=== PATIENT | male | born 1965 | race Caucasian/White ===

== ENCOUNTER 2020-10-13 21:42 | Emergency (ER) | payer SELFPAY ==
[2020-10-13 21:43] VITALS: BP 166/85; PULSE 74; RESP 16; TEMP 36.5; O2SAT 94; BMI 21.2
--- NOTE | 2020-10-13 21:48 | CTR_ITS ---
PROCEDURE INFORMATION: Exam: CT Abdomen And Pelvis Without Contrast Exam date and time: 10/13/2020 9:48 PM Age: 55 years old Clinical indication: Abdominal pain; Flank; Left; Prior surgery; Surgery type: Appy, colostomy; Additional info: Flank pain TECHNIQUE: Imaging protocol: Computed tomography of the abdomen and pelvis without contrast. Radiation optimization: All CT scans at this facility use at least one of these dose optimization techniques: automated exposure control; mA and/or kV adjustment per patient size (includes targeted exams where dose is matched to clinical indication); or iterative reconstruction. COMPARISON: No relevant prior studies available. RADIATION DOSE METRICS: Total DLP (mGy-cm): 753.36 FINDINGS: Liver: Normal. No mass. Gallbladder and bile ducts: Normal. No calcified stones. No ductal dilation. Pancreas: Normal. No ductal dilation. Spleen: Normal. No splenomegaly. Adrenal glands: Normal. No mass. Kidneys and ureters: There is a 3 mm nonobstructing calculus in the right kidney. Mild to moderate left obstructive uropathy is due to a 4 x 4 mm calculus in the very distal left ureter partially projecting into the urinary bladder. Additional 2 mm nonobstructing left intrarenal calculus. Stomach and bowel: Patent rectosigmoid anastomosis. Appendix: No evidence of appendicitis. Intraperitoneal space: Unremarkable. No free air. No significant fluid collection. Vasculature: Unremarkable. No abdominal aortic aneurysm. Lymph nodes: Unremarkable. No enlarged lymph nodes. Urinary bladder: Unremarkable as visualized. Reproductive: Unremarkable as visualized. Bones/joints: Unremarkable. No acute fracture. Soft tissues: 2 cm umbilical hernia consist of fatty tissue only. Small right inguinal hernia consist of fatty tissue only. CT/CT kidney stone 88877 IMPRESSION: 1. Left obstructive uropathy due to a 4 mm distal ureteral calculus. 2. Additional bilateral nonobstructing renal stones. Radiation Dose CTDIVOL = (mGy): DLP = 753.36 (mGy-cm)
--- NOTE | 2020-10-13 21:49 | ED_ITS ---
HPI - Abdominal Pain General: Chief Complaint: Abdominal Pain Stated Complaint: POSSIBLE KIDNEY STONES Time Seen by Provider: 10/13/20 21:48 History of Present Illness: HPI narrative: 55-year-old male patient comes in today with complaints of flank pain. Patient was seen at [facility] emergency department and was diagnosed with kidney stones. Patient was started on tamsulosin and tramadol for his pain. Today patient had worsening pain was able to control it with tramadol. Patient came in by EMS. Patient appears well. Patient appears in mild pain at this time. Patient does report that his pain is much improved. Review of Systems General: Reports: 10 or more systems reviewed and unremarkable except in HPI and below : Reports: flank pain Physical Exam Const: COMMON NORMALS: no acute distress and patient oriented x3 GENERAL APPEARANCE: cooperative HENMT: COMMON NORMALS: normocephalic and Normal external nose present HEAD & SCALP: normal to inspection and normocephalic NOSE: Normal external nose present MOUTH: Normal oral and palatal mucosa present Eye: GENERAL EYE: appearance normal, both eyes and all related structures Neck/C-Spine: COMMON NORMALS: full ROM Chest: COMMONS NORMALS: normal inspection of the chest Resp: COMMON NORMALS: normal respiratory effort EFFORT & INSPECTION: Yes able to speak in complete sentences Cardio: COMMON NORMALS: regular rate and regular rhythm RATE: regular rate RHYTHM: regular rhythm GI: COMMON NORMALS: non-tender Back/Pelvis: COMMON NORMALS: thoracic and lumbar spine normal to inspection Extremity: COMMON NORMALS: normal to inspection Neuro: COMMON NORMALS: patient oriented x3 and moves all extremities Psych: COMMON NORMALS: mental status grossly normal and cooperative Skin: COMMON NORMALS: no rashes or lesions noted GENERAL SKIN EXAM: no rashes or lesions noted Course Vital Signs: Vital signs: Vital Signs Temperature 97.7 F 10/13/20 21:43 Pulse Rate 74 10/13/20 21:43 Respiratory Rate 16 10/13/20 21:43 Blood Pressure 166/85 10/13/20 21:43 Pulse Oximetry 94 10/13/20 21:43 MDM - Abdominal Pain MDM Narrative: Medical decision making narrative: 55-year-old male patient comes in with some left flank pain. On exam patient has some CVA tenderness. Abdomen soft nontender. Bowel sounds are present. Patient had been seen at another emergency room and diagnosed with a left ureteral stone. Patient was unable to tolerate the pain today and had EMS bring him into the emergency department. Patient received a milligram of Dilaudid in route to the ER. Patient's pain is under good control at this time. Differential diagnosis includes not limited to urinary calculi, pyelonephritis, acute kidney injury. Laboratory values noted a CBC of 11,000 white count, potassium was mildly low at 3.1, glucose was at 188, creatinine was 0.8, CT scan noted a distal ureteral le ft kidney stone. We will continue patient on hydrocodone to help better control his pain. I will arrange for patient to have follow-up with urologist. No signs of significant illness was noted and patient was doing well after treatment. Lab Data: Labs: Lab Results 10/13/20 10/13/20 10/13/20 Range/Units 21:55 21:55 22:15 WBC 11.0 H (4.0-10.0) 10^3/ uL RBC 4.43 (4.1-5.3) 10^6/u L Hgb 13.6 (11.7-16.6) g/dL Hct 39.9 L (42.0-52.0) % MCV 90.1 (80-94) fL MCH 30.7 (28.0-34.0) pg MCHC 34.1 (30.0-36.0) g/dL RDW 12.2 (12.1-15.1) % Plt Count 248 (130-400) 10^3/c mm MPV 9.2 (7.4-10.4) fL Neut % (Auto) 72.6 % Lymph % (Auto) 17.9 % Sutter % (Auto) 7.2 % Eos % (Auto) 1.5 % Baso % (Auto) 0.5 % Neut # (Auto) 8.01 H (1.8-7.7) 10^3/u L Lymph # (Auto) 2.0 (0.8-4.8) 10^3/u L Sutter # (Auto) 0.8 (0.2-0.9) 10^3/u L Eos # (Auto) 0.2 (0.0-0.8) 10^3/u L Baso # (Auto) 0.1 (0.0-0.1) 10^3/u L Nucleated RBC % (a uto) 0 % Nucleated RBCs # 0.0 /100WBC Sodium 138 (136-145) mmol/L Potassium 3.1 L (3.5-5.1) mmol/L Chloride 105 (98-107) mmol/L Carbon Dioxide 22 (22-29) mmol/L Anion Gap 14.1 (5-19) BUN 12 (6-20) mg/dL Creatinine 0.8 (0.7-1.2) mg/dL GFR Calculation 100.7 (90-130) mL/min Glucose 188 H (65-115) mg/dL Calculated Osmolal ity 291 (285-295) mOsm/k g Calcium 8.1 L (8.5-10.5) mg/dL Total Bilirubin 0.5 (0.15-1.2) mg/dL AST 16 (0-40) U/L ALT 13 (0-41) U/L Alkaline Phosphata se 64 (40-130) IU/L Total Protein 6.4 L (6.6-8.7) g/dL Albumin 3.7 (3.5-5.2) g/dL Globulin 2.7 (1.3-4.6) g/dL Urine Color Yellow (Yellow) Urine Appearance Clear (CLEAR) Urine pH 6.5 (5-7) Ur Specific Gravit y 1.010 (1.005-1.030) Urine Protein Neg (Negative) Urine Glucose (UA) 4+ H (Normal) Urine Ketones Negative (Negative) Urine Blood 2+ H (Negative) Urine Nitrate Negative (Negative) Urine Bilirubin Neg (Negative) Urine Urobilinogen 4 H (Negative) mg/dL Ur Leukocyte Odalis ase Negative (Negative) Urine RBC 0-4 H (0-2) /hpf Urine WBC 0-4 H (0-5) /hpf Ur Squamous Epith Cells 0-4 H (0-5) /hpf Amorphous Sediment Not Reportable Urine Bacteria Trace (NONE) /hpf Urine Mucus Trace /hpf Discharge Plan Discharge Patient Disposition: Home Clinical Impression: Left ureteral calculus Condition: Stable Prescriptions: New hydrocodone-acetaminophen 5-325 mg tablet 1 tab PO Q6H PRN (Reason: pain) Qty: 14 RF: 0 Discharge Orders: Discharge ED (Routine); Ordered 10/13/20 Ordered By: Arnold Linda Referrals: [facility] [Other] Discharge Diet: Usual diet Discharge Activity: Increase activity as tolerated Patient Instructions: Renal Colic (ED), Opioid Safety Activity Restrictions/Additional Instructions: Use medication as directed. Continue with the tamsulosin. Use the hydrocodone for uncontrolled pain. Use acetaminophen or ibuprofen for further pain control. Follow-up with urologist. Case management will contact you regarding a urology follow-up appointment. Return to the emergency room for new concerns. Coding Level of Care Code ED Handicrafts Teacher for Julianna Fwd Exam Comprehensive
[2020-10-13 21:59] LABS: Basophils # 0.1 10^3/uL (0.0-0.1); Basophils % 0.5 %; Eosinophils # 0.2 10^3/uL (0.0-0.8); Eosinophils % 1.5 %; Hematocrit 39.9 % (42.0-52.0); Hemoglobin 13.6 g/dL (11.7-16.6); Lymphocytes % 17.9 %; Mean Corpuscular HGB Conc 34.1 g/dL (30.0-36.0); Mean Corpuscular Hemoglobin 30.7 pg (28.0-34.0); Mean Corpuscular Volume 90.1 fL (80-94); Mean Platelet Volume 9.2 fL (7.4-10.4); Monocytes # 0.8 10^3/uL (0.2-0.9); Monocytes % 7.2 %; Neutrophils # 8.01 10^3/uL (1.8-7.7); Neutrophils % 72.6 %; Nucleated Red Blood Cells % 0 %; Platelet Count 248 10^3/cmm (130-400); Red Blood Count 4.43 10^6/uL (4.1-5.3); Red Cell Distribution Width 12.2 % (12.1-15.1)
[2020-10-13] MEDS: sodium chloride 0.9% 500 ML 999 ML IV (22:15)
[2020-10-13 22:20] LABS: Alanine Aminotransferase 13 U/L (0-41); Albumin Level 3.7 g/dL (3.5-5.2); Alkaline Phosphatase 64 IU/L (40-130); Anion Gap 14.1 (5-19); Aspartate Amino Transferase 16 U/L (0-40); Blood Urea Nitrogen 12 mg/dL (6-20); Calcium 8.1 mg/dL (8.5-10.5); Carbon Dioxide 22 mmol/L (22-29); Chloride 105 mmol/L (98-107); Creatinine Clr Calc Pharmacy 99.2004; Globulin 2.7 g/dL (1.3-4.6); Glomerular Filtration Rate 100.7 mL/min (90-130); Glucose 188 mg/dL (65-115); Osmolality Calculated 291 mOsm/kg (285-295); Potassium 3.1 mmol/L (3.5-5.1); Sodium 138 mmol/L (136-145); Total Bilirubin 0.5 mg/dL (0.15-1.2); Total Protein 6.4 g/dL (6.6-8.7)
[2020-10-13 22:29] LABS: Add Urine Culture? No; Add Urine Microscopic? YES; Bacteria Urine TRACE /hpf; Bilirubin Urine Neg (Negative); Blood Urine 2+ (Negative); Glucose Urine UA 4+ (Normal); Ketones Urine Negative (Negative); Leukocyte Esterase Urine Negative (Negative); Mucus Urine TRACE /hpf; Nitrate Urine Negative (Negative); Protein Urine Neg (Negative); RBC Urine 0-4 /hpf (0-2); Squamous Epithelial Cell Urine 0-4 /hpf (0-5); Urine Appearance Clear (CLEAR); Urine Color Yellow (Yellow); Urobilinogen Urine 4 mg/dL (Negative); WBC Urine 0-4 /hpf (0-5); pH Urine 6.5 (5-7)
[2020-10-13] MEDS: HYDROcodone-acetaminophen 7.5-325 mg Tablet 2 TAB PO (22:57)
[2020-10-13 23:17] VITALS: BP 159/85; PULSE 73; RESP 16; TEMP 36.4; O2SAT 98
--- NOTE | 2020-10-14 10:43 | DCPLANNER ---
behavioral health case manager had message to schedule a follow up appointment for patient with Dr. Daigle. behavioral health case manager called the office of Dr. Daigle, spoke with Mateo, gave clinic patients information. behavioral health case manager was told that patients information would be printed and reviewed. Clinic will call patient with appointment information.
--- NOTE | 2020-10-15 13:53 | DCPLANNER ---
Patient had a follow up appointment scheduled for 10.15.[address] Daigle -patient did attend appointment.
== END 2020-10-13 22:45 | disposition home or self-care (01) ==
PROVIDERS: Emergency Provider Nurse Practitioner Family
DX: N20.2 Calculus of kidney with calculus of ureter (principal)
CPT/HCPCS: 74176; 80053; 81001; 85025; 99283; J7040

== ENCOUNTER 2020-10-15 12:59 | Outpatient (CLI) | payer SELFPAY ==
--- NOTE | 2020-10-15 13:06 | XR_ITS ---
WS: [id number] XR KUB [id number] REASON FOR EXAM: URETERAL CALCULUS FINDINGS: No free air. Unremarkable bowel gas pattern. No intrarenal calculi identified. Recent CT scan demonstrated a 3 mm calculus in the right kidney. No calculus is identified along the course of the right ureter. Within the left lower pelvis there is a 4 mm calcification which is felt to represent the calculus at the left ureterovesical junction demonstrated on recent CT. XR/XR KUB [id number] IMPRESSION: Right renal calculus not identified. Presumed left ureterovesical junction calculus.
== END 2020-10-15 13:00 | disposition home or self-care (01) ==
LOC: RAD 13:04
PROVIDERS: Visit Provider Urology
DX: N20.1 Calculus of ureter (principal); Z20.822 Contact with and (suspected) exposure to COVID-19
CPT/HCPCS: 74018; 81003; 87635

== ENCOUNTER 2020-10-20 10:32 | Day surgery (SDC) | payer SELFPAY ==
[2020-10-17 10:41] VITALS: BMI 22.1
[2020-10-20] VITALS (7 sets, daily range): BP systolic 110–172; BP diastolic 67–93; PULSE 68–78; RESP 10–18; TEMP 36.4–36.9; O2SAT 96–100
--- NOTE | 2020-10-20 | SCC_ITS ---
Procedure Done: Cystoscopy, LEFT: Retrograde, ureteroscopy, laser, stent 20.5 seconds of fluoroscopic guidance, for a cumulative dose of 4.08 mGy, was provided to Dr. Daigle by the radiology department. C-arm images of the abdomen were saved for the patient's permanent record. [facility]
--- NOTE | 2020-10-20 10:39 | SC_ITS ---
WS: [id number] C-arm fluoroscopy for left ureteral stent placement, 10/20/2020 Clinical Data: Left distal ureteral calculus Comparison: KUB, 10/20/2020. Findings: A left retrograde urogram shows a filling defect in the distal left ureter which is a left UVJ calcul us. A left ureteral stent is curled in the region of the left renal pelvis. SC/C-arm FL for Urology Impression: Left ureteral stent placement.
--- NOTE | 2020-10-20 10:39 | XR_ITS ---
WS: [id number] KUB, AP view, 10/20/2020 Clinical Data: Preop left ureteroscopy Comparison: KUB, 10/15/2020. Findings: No abnormal intraabdominal masses or calcifications are seen. There is no dilatated small bowel or ev idence of obstruction. There is an irregular calcification on the left side of the true pelvis which may be a left UVJ calcu mercedes. There is a large amount of fecal material and gas throughout the abdomen. XR/XR KUB [id number] Impression: Probable left UVJ calculus.
--- NOTE | 2020-10-20 12:02 | W.PM.OPSUD ---
Surgery/Procedure H&P Update DATE OF PROCEDURE: October 20, 2020 DATE H&P PERFORMED: 10/15/20 H&P UPDATE INFORMATION: I have reviewed H&P completed within last 30 days, I have examined patient prior to procedure, No changes to prior documentation and H&P is in [facility] EMR on date indicated CHANGES TO PREVIOUS DOCUMENTATION: KUB shows no change in the position of the stone identified on CT scan and prior KUB as being within the left distal ureter PREOP DIAGNOSIS: Left distal ureteral stone, refractory symptoms PLANNED PROCEDURE: Operation Date: 10/20/20 12:00 Proposed Procedures p Laser Lithotripsy 66924 [id number] 21361 n20.1(Not Applicable) - Ady Daigle MD s Cystoscopy(Not Applicable) - Ady Daigle MD s Retrograde Pyelogram(Left) - MD sharlene Dunaway Ureteroscopy(Not Applicable) - MD sharlene Dunaway Ureteral Stent Placement(Not Applicable) - Ady Daigle MD
[2020-10-20] MEDS: sodium chloride 0.9% 1,000 ML 30 ML IV (12:04)
--- NOTE | 2020-10-20 12:04 | P.OP_ITS ---
Operative Report Date of procedure: October 20, 2020 Pre-op Diagnosis: Left distal ureteral stone, refractory symptoms Post-op diagnosis: same Procedure Done: Cystoscopy, LEFT: Retrograde, ureteroscopy, laser, stent Implants: Left ureteral stent 6 Faroese by 28 cm double-pigtail no string Specimens removed/disposition: Stone Pathology: Stone Surgeon: Pilo Anesthesia: General Estimated blood loss: Minimal Urine output: Not measured Complications: None Findings: Stone in the expected position. Condition: stable Disposition: PACU Brief History: Nathaniel is a 55-year-old white male with a history of intermittent severe left flank/renal colicky type pain related to a left distal ureteral stone diagnosed on CT scan. initial conservative trial failed to lead to stone passage and has had severe pain off and on. Admitted now for endoscopic treatment of the stone Procedure: After routine preoperative evaluation examination was taken to the operating suite on 11-08 where general anesthesia was administered without difficulty. Prepped and draped in usual sterile fashion in dorsolithotomy position paying careful attention to avoiding pressure points after appropriate timeout was performed, SCDs confirmed to be functioning, preoperative antibiotics administered, beta-georgina protocol confirmed. Prepped and draped in usual sterile fashion in dorsolithotomy position paying careful attention to avoiding pressure points. 21 Faroese cystoscope with 30 degree lens was introduced to the urethral meatus and advanced to the bladder to videoscopy. The bladder was systematically examined. No stones were seen. 8 Faroese cone-tip catheter intubated to the left ureteral orifice for a left retrograde ureteropyelogram which demonstrated distal ureteral filling defect consistent with a stone seen on prior imaging. Ureter proximal to that point was dilated. Flexible tip guidewire was then advanced up the left ureter bypassing the stone curling in the area of the left renal pelvis. The distal ureter was in the later with a 15 Faroese 4 cm balloon with no waste. Wire was secured to the drapes as a safety wire and an offset semirigid ureteroscope was advanced next to the wire up the left ureter where the stone was encountered in the expected position. Attempts at securing it and try grasping forceps were unsuccessful. It was then fragmented with a 365 ?m psyllium superpulse laser fiber into small enough pieces that were easily withdrawn with a parachute basket. The distal ureter was then reinspected and was found to be quite edematous where the stone had been lodged and for that reason it was decided to leave a stent indwelling at the completion of the procedure. The cystoscope was backloaded over the guidewire and a 6 Faroese by 28 cm double- pigtail stent was advanced over the guidewire through the cystoscope into appropriate position as confirmed via fluoroscopy and cystoscopy. No additional fragments were seen in the bladder. The bladder was drained and the procedure completed. He tolerated procedure well without complications and was awakened in the operating room and returned to the recovery in stable condition. PLANS: 1. Anticipate discharge from outpatient surgery 2. Follow-up next week for cystoscopy and stent removal. No x-ray required
--- NOTE | 2020-10-20 12:16 | ANES.PREANE2 ---
Pre-Anesthetic Assessment Pre-Anesthetic Assessment: Height/Weight: Height 1.73 m Weight 66.224 kg Temp Pulse Resp BP Pulse Ox 98.2 F 78 16 172/79 97 10/20/20 11:50 10/20/20 11:50 10/20/20 11:50 10/20/20 11:50 10/20/20 11:50 Preop Diagnosis: Left distal ureteral stone, refractory symptoms Proposed Procedure: Operation Date: 10/20/20 12:00 Proposed Procedures p Laser Lithotripsy [id number] 81253 n20.1(Not Applicable) - Ady Daigle MD s Cystoscopy(Not Applicable) - Ady Daigle MD s Retrograde Pyelogram(Left) - MD sharlene Dunaway Ureteroscopy(Not Applicable) - MD sharlene Dunaway Ureteral Stent Placement(Not Applicable) - Ady Daigle MD Was Beta Duarte taken within 24 hours: N/A Was Clonidine taken within 24 hours: N/A Last intake: Intake Last Liquid Date 10/20/20 Last Liquid Time 00:00 Last Solid Date 10/20/20 Last Solid Time 00:00 Social: Social History: Alcohol (occasionally) and Tobacco Packs per day: marijuana daily Exam: Pre-Anes Outpt Exam: alert, oriented x 3, clear to auscultation bilaterally and regular rate & rhythm Airway: Submandibular: WNL Cervical ROM: WNL MP: 2 Dentition: Chipped Pulmonary: Pulmonary: Asthma and SOB CV/HEM: Comments: stent x4; history of chest pain, one FL : : None reported Hepatic: Hepatic: None reported GI: GI: None reported Metabolic: Metabolic: Hyperlipidemia Musc/skel: Comments: sciatica Neuropsych: Neuropsych: None reported Anesthetic Plan: ASA status: 2 Anesthesia: Anesthesia Evaluation and General Risk of > 500 ml blood loss (7ml/kg in children): No Meds/Allergies Current Medications: Current Medications Generic Name Dose Route Start Last Admin Trade Name Freq PRN Reason Stop Dose Admin Sodium Chloride 1,000 mls @ 30 ml s/hr 10/20/20 10:45 10/20/20 12:04 Sodium Chloride 0.9% IV 10/21/20 10:44 30 mls/hr .Q24H FRANCISCO Administration PFSH Anesthesia PFSH: Family History Mother , AT 56 Internal bleeding Father Lung disease Cancer LUNG Social History Smoking and tobacco status: current every day smoker Alcohol intake: current Marital status: Single Current occupational status: employed History of recent travel: No Data Anesthesia Cardiac Studies: No Data to Display
[2020-10-20] MEDS: levofloxacin-dextrose 5 % 500 MG/100 ML PREMIX 100 MG IV (12:25)
--- NOTE | 2020-10-20 13:17 | SUR.PHASEI ---
1314 PATIENT TO OPS FROM OR AT THIS TIME. ORAL AIRWAY IN PLACE. SPO2 100% ON SIMPLE MASK AT 6L.
--- NOTE | 2020-10-20 13:20 | SUR.PHASEI ---
1320 ORAL AIRWAY REMOVED. SPO2 100% ON RA.
--- NOTE | 2020-10-20 13:34 | SUR.PHASEI ---
7826 PATIENT TO OPS. DENIES PAIN.
[2020-10-20] MEDS: HYDROcodone-acetaminophen 5-325 mg Tablet 1 TAB PO (14:00)
--- NOTE | 2020-10-20 19:33 | ANE.PACU2 ---
Inpatient post-anesthesia follow up: Airway intact: Yes Vital signs: Temperature 97.5 F Pulse Rate 68 Respiratory Rate 18 Blood Pressure 156/93 Pulse Oximetry 100 Oxygen Delivery Me thod Room Air Oxygen Flow Rate 6 Fraction of Inspir ed Oxygen Hydration adequate: Yes Nausea and vomiting: No Pain level: 2 Mental status: Baseline
== END 2020-10-20 14:12 | disposition home or self-care (01) ==
PROVIDERS: Visit Provider Urology
PROC: (CPT 52356; principal; 2020-10-20 12:00)
PROC: 0TJB8ZZ Inspection of Bladder, Via Natural or Artificial Opening Endoscopic (ICD-10-PCS; CPT 52000; 2020-10-20 12:00)
PROC: (CPT 74420; 2020-10-20 12:00)
PROC: 0TJ98ZZ Inspection of Ureter, Via Natural or Artificial Opening Endoscopic (ICD-10-PCS; CPT 52351; 2020-10-20 12:00)
PROC: (CPT 50605; 2020-10-20 12:00)
DX: N20.1 Calculus of ureter (principal); F17.210 Nicotine dependence, cigarettes, uncomplicated; Z95.5 Presence of coronary angioplasty implant and graft; I25.2 Old myocardial infarction; E78.5 Hyperlipidemia, unspecified
CPT/HCPCS: 52356; 74018; 76000; 82365; 88300; 96365; C2625; J1100; J1956; J2405; J2704; J3010; J3490; J7030

== ENCOUNTER 2021-05-25 13:13 | Emergency (ER) | payer SELFPAY ==
[2021-05-25 13:39] VITALS: BP 121/81; PULSE 70; RESP 16; TEMP 36.3; O2SAT 97; BMI 22.0
--- NOTE | 2021-05-25 14:03 | XRR_ITS ---
PROCEDURE INFORMATION: Exam: XR Left Shoulder Exam date and time: 05/25/2021 2:03 PM Age: 55 years old Clinical indication: Pain and injury or trauma; Blunt trauma (contusions or hematomas); Left; Injury details: Lt shoulder injury while wrestling. Lt shoulder pain knot on top of lt shoulder; Additional info: Shoulder pain and injury TECHNIQUE: Imaging protocol: XR Left shoulder. Views: 2 or more views. COMPARISON: [place] Chest 1 [place] [id number] 03/01/2016 6:50 PM FINDINGS: Bones/joints: Elevation of the distal clavicle in relation to the acromion. Osseous structures are intact. Negative for fracture. Soft tissues: Normal. XR/XR shoulder LT min 2V* [id number] IMPRESSION: Acromioclavicular joint injury, type III by Kory classification.
--- NOTE | 2021-05-25 14:24 | W.ED.EXTPRO ---
Documented by User: CRISTIAN Schwartz 05/25/21 15:55 HPI - Extremity Problem General: Chief complaint: Extremity Injury, Upper Stated complaint: Shoulder injury Time Seen by Provider: 05/25/21 13:46 History of Present Illness: Patient is a 55-year-old male who comes to the ED with left shoulder injury. Injury occurred just prior to arrival. Patient says he was goofing around with a body and abdomen headlock. He fell backwards and landed on his left shoulder. Denies any head injury or loss of consciousness. Patient pain a 10 out of 10 in left shoulder especially with any movement. Pain is minimal if he does not move left arm. Associated symptoms: Deny chest pain, fever(s) or rash Review of Systems Const: Denies: fever(s), chills or fatigue Eyes: Denies: change in vision or eye discomfort ENMT: Denies: throat pain, odynophagia, nasal discharge or nasal congestion Card: Denies: chest pain, palpitations, edema, swelling of feet/ankles, dyspnea on exertion or orthopnea Resp: Denies: dyspnea, productive cough or non-productive cough GI: Denies: abdominal pain, nausea, vomiting, diarrhea, constipation or hematochezia : Denies: flank pain, difficulty urinating, dysuria or hematuria Musc: Reports: joint pain (left shoulder) and limited range of motion (left shoulder); Denies: neck pain, back pain or extremity swelling Skin/Breast: Denies: rash or new lesions Neuro: Denies: headache(s), numbness in extremities or weakness in extremities [facility] ED PFSH: Medical History Urolithiasis Surgical History History of bowel resection History of heart artery stent S/P ureteral stent placement Status post laser lithotripsy of ureteral calculus Family History Mother , AT 56 Internal bleeding Father Lung disease Cancer LUNG Social History Alcohol intake: current Marital status: Single Current occupational status: employed History of recent travel: No Physical Exam Const: COMMON NORMALS: patient oriented x3 and alert GENERAL APPEARANCE: cooperative and comfortable HENMT: COMMON NORMALS: normocephalic HEAD & SCALP: normocephalic MOUTH: Normal oral and palatal mucosa present THROAT: posterior oropharynx normal and uvula midline Neck/C-Spine: COMMON NORMALS: supple GENERAL: Yes normal visual inspection Resp: COMMON NORMALS: normal respiratory effort, No retractions, No use of accessory muscles and clear to auscultation bilaterally AUSCULTATION: clear to auscultation bilaterally Cardio: COMMON NORMALS: regular rate, regular rhythm, S1 normal heart sound present, S2 normal heart sound present, No gallops present (Cardio), No clicks present (Cardio), No murmurs present (Cardio) and Peripheral pulses 2+ throughout RATE: regular rate RHYTHM: regular rhythm HEART SOUNDS: S1 normal heart sound present and S2 normal heart sound present PERIPHERAL PULSES: Peripheral pulses 2+ throughout GI: COMMON NORMALS: Normal to inspection, nondistended, normoactive bowel sounds present, Soft to palpation, non-tender and no masses PALPATION: Yes Soft to palpation : COMMON NORMALS: Yes no CVA tenderness BLADDER/KIDNEY EXAM: Yes no CVA tenderness Back/Pelvis: COMMON NORMALS: no CVA tenderness Extremity: LEFT UPPER EXTREMITY: Yes shoulder joint Left shoulder joint: Yes inspection (Swelling around AC joint), Yes palpation (Tenderness over AC joint), Yes ROM (Limited due to pain) and Yes neurovascular exam (Intact) Neuro: COMMON NORMALS: patient oriented x3 and moves all extremities SENSORIUM/ORIENTATION: Yes alert Skin: GENERAL SKIN EXAM: dry skin Course Vital Signs: Vital signs: Vital Signs Temperature 97.4 F L 05/25/21 13:39 Pulse Rate 70 05/25/21 13:39 Respiratory Rate 16 05/25/21 13:39 Blood Pressure 121/81 05/25/21 13:39 Pulse Oximetry 97 05/25/21 13:39 MDM - Extremity (Nontraumatic) Medical Decision Making Patient is a 55-year-old male comes to the ED with left shoulder pain after fall injury. Left arm neurovascular intact. Patient does have some palpable tenderness and swelling over AC joint of the left shoulder. X-ray of left shoulder showed AC joint injury type III by Chandler classification. Patient was put in a shoulder immobilizer and I placed an order with case management for patient to be referred to Ortho for further management of shoulder injury. Patient was discharged home with a prescription for hydrocodone for pain. He was told [facility] will contact them next 7 days set up an appointment with Ortho. Return to ED precautions given. Patient understood and agree with plan. Lab Data Radiology Impressions Shoulder X-Ray 05/25/21 14:03 IMPRESSION: Acromioclavicular joint injury, type III by Kory classification. Discharge Plan Discharge Patient Disposition: Home Clinical Impression: Acromioclavicular joint separation, type 3 Qualifiers: Encounter type: initial encounter Laterality: left Qualified Code(s): S43.102A - Unspecified dislocation of left acromioclavicular joint, initial encounter Condition: Stable Prescriptions: No Action tamsulosin 0.4 mg capsule 0.4 mg PO DAILY 0RF hydrocodone-acetaminophen 5-325 mg tablet 1 tab PO Q6H PRN (Reason: pain) 4 Days Qty: 16 0RF Discharge Orders: Discharge ED (Routine); Ordered 05/25/21 Ordered By: Tanner Marrero Discharge Diet: Regular Discharge Activity: Limit activity as instructed Patient Instructions: Acromioclavicular Separation (ED), Opioid Safety Activity Restrictions/Additional Instructions: Follow-up with medical provider as directed. Case management should be contacting you in the next several days to set up an appointment with Ortho for further management of left shoulder injury. Take medications as prescribed. Wear shoulder immobilizer. return to the ER or your medical provider if condition worsens. Please read and understand discharge instructions. Thank you for choosing [facility] for your healthcare needs today. Please realize this is an emergency room and that we are providing you with a medical screening exam and this may not be complete and all inclusive of all the testing and or work up that you may need to determine your ailment or severity of your illness. It is very important that you follow up as instructed or that you return to the Emergency Department should you have concerns or if your condition changes or worsens in any way. Coding Level of Care Code ED Specialist Field Engineer for Julianna Fwd Exam Comprehensive Documented by User: Nick Moon DO 05/25/21 17:43 HPI - Extremity Problem General: Chief complaint: Extremity Injury, Upper Stated complaint: Shoulder injury Time Seen by Provider: 05/25/21 13:46 PFSH ED PFSH: Medical History Urolithiasis Surgical History History of bowel resection History of heart artery stent S/P ureteral stent placement Status post laser lithotripsy of ureteral calculus Family History Mother , AT 56 Internal bleeding Father Lung disease Cancer LUNG Social History Alcohol intake: current Marital status: Single Current occupational status: employed History of recent travel: No Course Vital Signs: Vital signs: Vital Signs Temperature 97.4 F L 05/25/21 13:39 Pulse Rate 70 05/25/21 13:39 Respiratory Rate 16 05/25/21 13:39 Blood Pressure 121/81 05/25/21 13:39 Pulse Oximetry 97 05/25/21 13:39 MDM - Extremity (Nontraumatic) Medical Decision Making Patient is a 55-year-old male comes to the ED with left shoulder pain after fall injury. Left arm neurovascular intact. Patient does have some palpable tenderness and swelling over AC joint of the left shoulder. X-ray of left shoulder showed AC joint injury type III by Chandler classification. Patient was put in a shoulder immobilizer and I placed an order with case management for patient to be referred to Ortho for further management of shoulder injury. Patient was discharged home with a prescription for hydrocodone for pain. He was told [facility] will contact them next 7 days set up an appointment with Ortho. Return to ED precautions given. Patient understood and agree with plan. Chart reviewed and patient discussed with midlevel. Agree with assessment and plan. Lab Data Radiology Impressions Shoulder X-Ray 05/25/21 14:03 IMPRESSION: Acromioclavicular joint injury, type III by Chandler classification. Discharge Plan Discharge Patient Disposition: Home Clinical Impression: Acromioclavicular joint separation, type 3 Qualifiers: Encounter type: initial encounter Laterality: left Qualified Code(s): S43.102A - Unspecified dislocation of left acromioclavicular joint, initial encounter Condition: Stable Prescriptions: No Action tamsulosin 0.4 mg capsule 0.4 mg PO DAILY 0RF hydrocodone-acetaminophen 5-325 mg tablet 1 tab PO Q6H PRN (Reason: pain) 4 Days Qty: 16 0RF Discharge Orders: Discharge ED (Routine); Ordered 05/25/21 Ordered By: Tanner Marrero Discharge Diet: Regular Discharge Activity: Limit activity as instructed Patient Instructions: Acromioclavicular Separation (ED), Opioid Safety Activity Restrictions/Additional Instructions: Follow-up with medical provider as directed. Case management should be contacting you in the next several days to set up an appointment with Ortho for further management of left shoulder injury. Take medications as prescribed. Wear shoulder immobilizer. return to the ER or your medical provider if condition worsens. Please read and understand discharge instructions. Thank you for choosing [facility] for your healthcare needs today. Please realize this is an emergency room and that we are providing you with a medical screening exam and this may not be complete and all inclusive of all the testing and or work up that you may need to determine your ailment or severity of your illness. It is very important that you follow up as instructed or that you return to the Emergency Department should you have concerns or if your condition changes or worsens in any way. Coding Level of Care Code ED Specialist Field Engineer for Julianna Montaño Exam Comprehensive
[2021-05-25] MEDS: HYDROcodone-acetaminophen 7.5-325 mg Tablet 1 TAB PO (14:29)
--- NOTE | 2021-05-26 09:06 | DCPLANNER ---
Addendum entered by Lucy Doherty 06/02/21 07:03: Patient had a follow up appointment scheduled for 05.27.[address] Holden at ortho - patient did attend appointment. Original Note: manager credit had message to schedule a follow up appointment for patient with ortho. manager credit called the ortho clinic, spoke with Antonieta, gave clinic patients information. manager credit was told that patients information would be printed and reviewed. Clinic will call patient with appointment information.
== END 2021-05-25 15:25 | disposition home or self-care (01) ==
PROVIDERS: Emergency Provider Physician Assistant
DX: S43.102A Unspecified dislocation of left acromioclavicular joint, initial encounter (principal); W18.30XA Fall on same level, unspecified, initial encounter; Y93.83 Activity, rough housing and horseplay
CPT/HCPCS: 29240; 73030; 99283

== ENCOUNTER → 2021-05-27 15:41 | Outpatient (BNVA) | payer SELFPAY | PROVIDERS: Referring Provider Physician Assistant; Visit Provider Orthopaedic Surgery | DX: Z01.812 Encounter for preprocedural laboratory examination (principal); Z20.822 Contact with and (suspected) exposure to COVID-19 | CPT/HCPCS: 87635 ==

== ENCOUNTER → 2021-06-02 10:56 | Outpatient (BNVA) | payer SELFPAY | PROVIDERS: Visit Provider Orthopaedic Surgery | DX: Z01.812 Encounter for preprocedural laboratory examination (principal); Z20.822 Contact with and (suspected) exposure to COVID-19 | CPT/HCPCS: 87635 ==

== ENCOUNTER 2021-06-04 08:11 | Day surgery (SDC) | payer SELFPAY ==
[2021-06-03 14:37] VITALS: BMI 22.0
[2021-06-04] VITALS (15 sets, daily range): BP systolic 157–195; BP diastolic 78–108; PULSE 69–80; RESP 16–95; TEMP 36.1–36.2; O2SAT 93–100
[2021-06-04] MEDS: sodium chloride 0.9% 1,000 ML 30 ML IV (08:45)
--- NOTE | 2021-06-04 09:05 | ANES.PREANE2 ---
Pre-Anesthetic Assessment Height/Weight: Height 1.73 m Weight 65.771 kg Preop Diagnosis: AC joint Separation Operation Date: 06/04/21 09:55 Proposed Procedures p AC Separation Repair (Shoulder) 07477/s43.109a(Left) - Keon Holden MD Familial anesthetic complications: None Was Beta Duarte taken within 24 hours: N/A Was Clonidine taken within 24 hours: N/A Last intake: Intake Last Liquid Date 06/03/21 Last Liquid Time 22:00 Last Solid Date 06/03/21 Last Solid Time 22:00 Social Tobacco and No alcohol Exam alert, oriented x 3, clear to auscultation bilaterally and regular rate & rhythm Airway Submandibular: within normal limits Cervical ROM: within normal limits Mallampati: Class II Dentition: partials History/ROS No significant history except as noted Pulmonary None reported CV/HEM None reported METS > 4 Urolithiasis Hepatic None reported GI None reported Metabolic None reported Musc/skel None reported Neuropsych None reported Anesthetic Plan ASA status: 2 Anesthesia: Anesthesia Evaluation and General Other: We discussed risk and benefits of general anesthesia including PONV, sore throat (sometimes severe), corneal abrasion, positioning and peripheral nerve injuries, life threatening allergic reaction, post operative ICU admission requiring prolonged intubation, stroke, heart attack, , and rare incidences of recall. Patient consents to proceed with general anesthesia. Risk of > 500 ml blood loss (7ml/kg in children): No Other Pertinent Information No block per surgeon Medications/Allergies Home Medications Medication Instructions Recorded Confirmed Last Taken Type hydrocodone 5 mg-acetaminophen 325 1 tab PO Q6H PRN 7 Days #30 tab 05/27/21 06/04/21 06/04/21 06:15 Rx mg tablet Allergies Allergy/AdvReac Type Severity Reaction Status Date / Time aspirin Allergy Unknown Verified 05/27/21 15:07 [facility], [facility] Anesthesia Medical History Urolithiasis Surgical History History of bowel resection History of heart artery stent S/P ureteral stent placement Status post laser lithotripsy of ureteral calculus Family History Mother , AT 56 Internal bleeding Father Lung disease Cancer LUNG Social History Smoking and tobacco status: current every day smoker Alcohol intake: current Marital status: Single Current occupational status: employed History of recent travel: No Data Anesthesia Cardiac Studies: No Data to Display
--- NOTE | 2021-06-04 11:06 | W.PM.OPSUD ---
Surgery/Procedure H&P Update DATE OF PROCEDURE: June 04, 2021 DATE H&P PERFORMED: 05/27/21 PREOP DIAGNOSIS: AC joint Separation PLANNED PROCEDURE: Operation Date: 06/04/21 09:55 Proposed Procedures p AC Separation Repair (Shoulder) 61532/s43.109a(Left) - Keon Holden MD
--- NOTE | 2021-06-04 12:36 | PM.OP ---
Operative Report Date of procedure: June 04, 2021 Pre-op diagnosis: Preop Diagnosis AC joint Separation left shoulder Post-op diagnosis: same Procedure done: Coracoclavicular ligament reconstruction, distal clavicle excision Implants: 11 cm Lockdown Acromioclavicular device,, 26 mm screw with washer Pathology: none sent Anesthesia: General Estimated blood loss (mL): 200 Findings: The patient had a degenerative acromioclavicular joint with proximal migration of least to shaft lengths. There is disruption of the trapezius and deltoid fascia from the most lateral clavicle. Condition: stable Disposition: PACU Procedure: The patient was taken to the operating room given 2 g of Ancef and a general anesthesia. He is positioned in beachchair position with a bump under his left scapula. The arm was prepped and draped in the usual fashion. A timeout was performed. A 5 cm long incision was be made beginning over a point just approximately 1 cm medial to the acromioclavicular joint extending down just lateral to the coracoid process. The periosteum was elevated off the clavicle on either side of the incision for approximately a 1 cm. Blunt Homans were placed around the distal clavicle and the oscillating saw used to remove approximately 8 cm of distal clavicle. Next the Lockdown shuttle passer was passed from the medial coracoid around exiting laterally and the shuttle passed through the guide. It was secured and brought over the posterior clavicle. With the joint reduced the 11 cm hashmark was over the anterior clavicle. The shuttle was then used to pass an 11 cm acromioclavicular device. The device was secured around the clavicle passed posterior to the clavicle and drawn down over the anterior clavicle with the shoulder reduced. The spot was marked for fixation and a drill hole made from anterior to posterior extending slightly medially posteriorly. The drill hole measured 22 mm and a screw 26 mm in length was then chosen. The screw was passed through the loop and the graft and through the tunnel and the clavicle maintaining the clavicle in a reduced position. The dorsal periosteum and deltoid split was closed with 1 Ethibond. Subcutaneous tissues were closed with 2-0 Vicryl. The skin was closed with a running 4-0 Stratofix suture and covered with a Prineo skin glue. Sterile dressings were applied. The patient was placed in a sling, extubated, and taken to recovery in stable condition.
[2021-06-04] MEDS: fentaNYL 50 mcg/mL INJ 2mL IVP ×2 (12:50→13:01)
[2021-06-04] MEDS: magnesium sulfate premix 2 GM/50 ML PIGGYBACK IV (13:20)
[2021-06-04] MEDS: oxyCODONE 5 mg IR Tab/Cap PO (13:58)
--- NOTE | 2021-06-04 15:23 | ANE.PACU2 ---
Inpatient post-anesthesia follow up: Airway intact: Yes Vital signs: Temperature 97 F Pulse Rate 80 Respiratory Rate 18 Blood Pressure 190/94 Pulse Oximetry 94 Oxygen Delivery Me thod Room Air Oxygen Flow Rate 6 Fraction of Inspir ed Oxygen Hydration adequate: Yes Nausea and vomiting: No Pain level: 7 Mental status: Baseline Additional Comments: Difficult to control pain. Receiving multi modal analgesia. Able to rest with eyes closed.
== END 2021-06-04 15:17 | disposition home or self-care (01) ==
PROVIDERS: Visit Provider Orthopaedic Surgery
PROC: (CPT 23550; principal; 2021-06-04 09:55)
DX: S43.102A Unspecified dislocation of left acromioclavicular joint, initial encounter (principal); W19.XXXA Unspecified fall, initial encounter; F17.210 Nicotine dependence, cigarettes, uncomplicated; Z95.5 Presence of coronary angioplasty implant and graft
CPT/HCPCS: 23550; C1713; J0690; J1100; J1170; J1580; J2405; J2710; J3010; J3475; J3490; J7030

== ENCOUNTER 2022-09-19 14:45 | Emergency (ER) | payer OTHER, SELFPAY ==
[2022-09-19 14:55] VITALS: BP 106/68; PULSE 83; RESP 18; TEMP 36.8; O2SAT 95; BMI 20.5
--- NOTE | 2022-09-19 15:02 | XRR_ITS ---
PROCEDURE INFORMATION: Exam: XR Chest Exam date and time: 09/19/2022 3:10 PM Age: 56 years old Clinical indication: Dyspnea TECHNIQUE: Imaging protocol: Radiologic exam of the chest. Views: 1 view. COMPARISON: CR XR chest 1V [id number] 03/01/2016 6:50 PM FINDINGS: Lungs: Cardiac silhouette size, and vascularity are somewhat accentuated, likely related to poor inspiration/expansion however clinical correlation for mild CHF should be obtained. Upper lungs are clear. Lung bases are suboptimally assessed however there is new peribronchial thickening and slight interstitial prominence in both lung bases which may represent developing bronchitis/pneumonia. Dependent edema may also be considered. Pleural spaces: New small bilateral pleural effusions. No pneumothorax. Heart/Mediastinum: As above. Bones/joints: No acute osseous findings. Other findings: Single view was submitted. XR/XR chest 1V portable [id number] IMPRESSION: 1. Accentuated cardiac silhouette size and vascularity. See discussion above. 2. New peribronchial thickening and bibasilar interstitial prominence. New small bilateral pleural effusions. See discussion above..
--- NOTE | 2022-09-19 15:03 | ECG_ITS ---
[facility] Test Date: 2022-09-19 Pat Name: Nathaniel Botello Department: Room: Gender: Male Traveling Operator: : 1965 Requested By: Americo Aguila Order Number: [id number] Willis MD: Catherine Orellana M.D. Measurements Intervals [place] Rate: 82 P: 73 VT: 143 QRS: 73 QRSD: 108 T: 82 QT: 387 QTc: 454 Interpretive Statements SINUS RHYTHM POSSIBLE LEFT ATRIAL ENLARGEMENT [-0.1mV P-WAVE IN V1/V2] INDETERMINATE AXIS INFERIOR MYOCARDIAL INFARCTION , PROBABLY OLD [40+ ms Q WAVE AND/OR ST/T ABNORMALITY IN II/aVF] ANTEROLATERAL MYOCARDIAL INFARCTION , OF INDETERMINATE AGE [40+ ms Q WAVE IN I/aVL/V3-V6] Compared to ECG 03/04/2016 05:45:53 Indeterminate axis now present Myocardial infarct finding now present ST (T wave) deviation no longer present Early repolarization no longer present Electronically Signed On 09-20-2022 18:35:08 CDT by Catherine Orellana M.D. [id number]
--- NOTE | 2022-09-19 15:17 | PC.PHAR ---
pt states he takes no rx or otc medications-pt states before covid he was taking 4 different medications states he had stents and was on medication for that along with blood pressure meds -pt states not taken meds for 3 years-[facility] where meds were filled years ago is closed on sundays no way to verify what they were
[2022-09-19 15:22] LABS: Basophils # 0.1 10^3/uL (0.0-0.1); Basophils % 0.8 %; Eosinophils # 0.1 10^3/uL (0.0-0.8); Eosinophils % 1.7 %; Hematocrit 39.1 % (42.0-52.0); Hemoglobin 13.1 g/dL (11.7-16.6); Lymphocytes # 1.8 10^3/uL (0.8-4.8); Mean Corpuscular HGB Conc 33.5 g/dL (30.0-36.0); Mean Corpuscular Hemoglobin 30.2 pg (28.0-34.0); Mean Corpuscular Volume 90.1 fl (80-94); Mean Platelet Volume 10.3 fL (7.4-10.4); Monocytes # 0.4 10^3/uL (0.2-0.9); Monocytes % 6.5 %; Neutrophils # 4.24 10^3/uL (1.8-7.7); Neutrophils % 63.7 %; Nucleated Red Blood Cells % 0 %; Platelet Count 203 10^3/cmm (130-400); Red Blood Count 4.34 10^6/uL (4.1-5.3); Red Cell Distribution Width 13.1 % (12.1-15.1); White Blood Count 6.6 10^3/uL (4.0-10.0)
--- NOTE | 2022-09-19 15:23 | ED_ITS ---
HPI - SOB/Dyspnea General: Chief Complaint: Shortness of Breath/Dyspnea Stated Complaint: sob, dizzy Time Seen by Provider: 09/19/22 15:00 History of Present Illness: HPI Narrative: Patient presents to the ER with complaints of worsening shortness of breath over about the last 7 days. Patient says worse when he lays down or when he tries to eat. Patient says this started actually couple months ago but has progressed over the last 7 days. Patient is also complaining complaining of bilateral leg calf pain worse when he stands up and walks. Patient has tried a friend's albuterol inhaler which did seem to help. Patient is never had any of the symptoms before. Review of Systems General: Reports: 10 or more systems reviewed and unremarkable except in HPI and below PFSH ED PFSH: Medical History Urolithiasis Surgical History History of bowel resection History of heart artery stent S/P ureteral stent placement Status post laser lithotripsy of ureteral calculus Family History Mother , AT 56 Internal bleeding Father Lung disease Cancer LUNG Social History Smoking and tobacco status: current every day smoker Alcohol intake: current Substance/Drug Use: current Marital status: Single Current occupational status: employed Physical Exam Const: COMMON NORMALS: no acute distress, average body habitus, patient oriented x3, no limitations, healthy appearing, alert and well nourished HENMT: COMMON NORMALS: normocephalic, atraumatic, hearing grossly normal bilaterally, external ears normal, Normal external nose present and moist oral mucous membranes HEAD & SCALP: normocephalic and atraumatic NOSE: Normal external nose present EXTERNAL EAR: Yes external ears normal Eye: COMMON NORMALS: Equal, round and reactive pupils present, EOMs intact bilaterally, conjunctivae normal and no scleral icterus CONJUNCTIVA: Yes conjunctivae normal PUPIL: Yes Equal, round and reactive pupils present Neck/C-Spine: COMMON NORMALS: full ROM, no lymphadenopathy, supple, no meningeal signs, no JVD and Thyroid normal THYROID: Thyroid normal Chest: COMMONS NORMALS: normal inspection of the chest and normal palpation of entire chest wall Resp: COMMON NORMALS: clear to auscultation bilaterally EFFORT & INSPECTION: Yes able to speak in complete sentences AUSCULTATION: clear to auscultation bilaterally and diminished lung sounds Cardio: COMMON NORMALS: no JVD, regular rate, regular rhythm, S1 normal heart sound present, S2 normal heart sound present, No gallops present (Cardio), No clicks present (Cardio), No murmurs present (Cardio) and No rub (Cardio) R ATE: regular rate RHYTHM: regular rhythm HEART SOUNDS: S1 normal heart sound present and S2 normal heart sound present GI: COMMON NORMALS: Normal to inspection, nondistended, normoactive bowel sounds present, Soft to palpation, non-tender, No hepatosplenomegaly present and no masses PALPATION: Yes Soft to palpation and Yes No hepatosplenomegaly present Neuro: COMMON NORMALS: patient oriented x3 SENSORIUM/ORIENTATION: Yes alert MENINGEAL SIGNS: Yes no meningeal signs Course Vital Signs: Vital signs: Vital Signs Temperature 98.2 F 09/19/22 14:55 Pulse Rate 90 09/19/22 16:03 Respiratory Rate 26 H 09/19/22 16:03 Blood Pressure 119/91 09/19/22 16:03 Pulse Oximetry 95 09/19/22 16:03 Oxygen Delivery Me thod Room Air 09/19/22 15:55 MDM - SOB/Dyspnea Medical Decision Making Patient presented with shortness of breath. Patient was given 1 DuoNeb breathing treatment which open his airways up and help. Lab work revealed elevated blood glucose of 354, L hypokalemia at 3.2, chest x-ray showed small bilateral pleural effusions and possible mild pulmonary edema. EKG showed sinus rhythm. Patient was given 40 mg Lasix IV 40 mEq potassium p.o. will be discharged home with prescriptions. Patient should follow-up with his primary care doc in approximately 1 week. Differential Diagnosis Likely acute exacerbation of chronic obstructive airways disease and congestive heart failure; Unlikely community acquired pneumonia, asthma with exacerbation or pulmonary embolism Medical Records I reviewed the patient's medical records. Lab Data I reviewed the patient's lab results. 09/19/22 15:17 09/19/22 15:17 Labs/Radiology: Radiology Impressions Chest X-Ray 09/19/22 15:02 IMPRESSION: 1. Accentuated cardiac silhouette size and vascularity. See discussion above. 2. New peribronchial thickening and bibasilar interstitial prominence. New small bilateral pleural effusions. See discussion above.. Laboratory Results WBC 6.6 10^3/uL (4.0-10.0) 09/19/22 15:17 RBC 4.34 10^6/uL (4.1-5.3) 09/19/22 15:17 Hgb 13.1 g/dL (11.7-16.6) 09/19/22 15:17 Hct 39.1 % (42.0-52.0) L 09/19/22 15:17 MCV 90.1 fl (80-94) 09/19/22 15:17 MCH 30.2 pg (28.0-34.0) 09/19/22 15:17 MCHC 33.5 g/dL (30.0-36.0) 09/19/22 15:17 RDW 13.1 % (12.1-15.1) 09/19/22 15:17 Plt Count 203 10^3/cmm (130-400) 09/19/22 15:17 MPV 10.3 fL (7.4-10.4) 09/19/22 15:17 Neut % (Auto) 63.7 % 09/19/22 15:17 Lymph % (Auto) 27.0 % 09/19/22 15:17 [place] % (Auto) 6.5 % 09/19/22 15:17 Eos % (Auto) 1.7 % 09/19/22 15:17 Baso % (Auto) 0.8 % 09/19/22 15:17 Neut # (Auto) 4.24 10^3/uL (1.8-7.7) 09/19/22 15:17 Lymph # (Auto) 1.8 10^3/uL (0.8-4.8) 09/19/22 15:17 [place] # (Auto) 0.4 10^3/uL (0.2-0.9) 09/19/22 15:17 Eos # (Auto) 0.1 10^3/uL (0.0-0.8) 09/19/22 15:17 Baso # (Auto) 0.1 10^3/uL (0.0-0.1) 09/19/22 15:17 Nucleated RBC % (auto) 0 % 09/19/22 15:17 Nucleated RBCs # 0.0 /100WBC 09/19/22 15:17 Sodium 135 mmol/L (136-145) L 09/19/22 15:17 Potassium 3.2 mmol/L (3.5-5.1) L 09/19/22 15:17 Chloride 100 mmol/L (98-107) 09/19/22 15:17 Carbon Dioxide 22 mmol/L (22-29) 09/19/22 15:17 Anion Gap 16.2 (5-19) 09/19/22 15:17 BUN 8 mg/dL (6-20) 09/19/22 15:17 Creatinine 0.9 mg/dL (0.7-1.2) 09/19/22 15:17 GFR Calculation 87.6 mL/min (90-130) L 09/19/22 15:17 Glucose 354 mg/dL (65-115) H 09/19/22 15:17 Calculated Osmolality 293 mOsm/kg (285-295) 09/19/22 15:17 Calcium 8.6 mg/dL (8.5-10.5) 09/19/22 15:17 Magnesium 1.7 mg/dL (1.7-2.3) 09/19/22 15:17 Total Bilirubin 0.5 mg/dL (0.15-1.2) 09/19/22 15:17 AST 13 U/L (0-40) 09/19/22 15:17 ALT 13 U/L (0-41) 09/19/22 15:17 Alkaline Phosphatase 96 U/L (40-130) 09/19/22 15:17 NT-Pro-B Natriuret Pep 6800 pg/mL (0-125) H 09/19/22 15:17 Total Protein 6.6 g/dL (6.6-8.7) 09/19/22 15:17 Albumin 3.5 g/dL (3.5-5.2) 09/19/22 15:17 Globulin 3.1 g/dL (1.3-4.6) 09/19/22 15:17 EKG Data EKG 1: I personally reviewed and interpreted this EKG as follows: EKG Interpretation Date: 09/19/22 EKG interpretation time: 15:09 Prior EKG tracings: not available for review Interpretation: EKG showed sinus rhythm with ventricular rate 82 bpm, MS interval 143, QRS duration 108, QTc of 426, Discharge Plan Discharge Patient Disposition: Home Clinical Impression: Breath shortness, Acute hypokalemia, Acute hyperglycemia Condition: Stable Prescriptions: New ProAir RespiClick 90 mcg/actuation aerosol powdr breath activated 2 inh inhalation Q6H PRN (Reason: shortness of breath) Qty: 1 0RF potassium chloride 20 mEq tablet extended release 20 meq PO BID Qty: 10 0RF furosemide 40 mg tablet 40 mg PO QAM Qty: 5 0RF Discharge Orders: Discharge ED (Routine); Ordered 09/19/22 Ordered By: Americo Aguila Patient Instructions: Hyperglycemia, Hypokalemia (ED), Shortness of Breath (ED) Activity Restrictions/Additional Instructions: Please take your medicine as directed. Please follow-up with your primary care doctor in the next 7 to 10 days. If your symptoms return or worsen please feel free to come back to the ER for further evaluation and treatment. Coding Level of Care Code ED Backhoe Operator for Julianna Montaño
[2022-09-19 15:28] VITALS: BP 109/67; PULSE 88; O2SAT 96
[2022-09-19] MEDS: ipratropium-albuterol 3 mL Neb INHALATION (15:46)
[2022-09-19 15:47] VITALS: PULSE 87; RESP 16; O2SAT 96
[2022-09-19 15:55] VITALS: PULSE 82; RESP 18; O2SAT 96
[2022-09-19 16:03] VITALS: BP 119/91; PULSE 90; RESP 26; O2SAT 95
[2022-09-19 16:06] LABS: Alanine Aminotransferase 13 U/L (0-41); Albumin Level 3.5 g/dL (3.5-5.2); Alkaline Phosphatase 96 U/L (40-130); Anion Gap 16.2 (5-19); Aspartate Amino Transferase 13 U/L (0-40); Blood Urea Nitrogen 8 mg/dL (6-20); Calcium 8.6 mg/dL (8.5-10.5); Carbon Dioxide 22 mmol/L (22-29); Chloride 100 mmol/L (98-107); Globulin 3.1 g/dL (1.3-4.6); Glomerular Filtration Rate 87.6 mL/min (90-130); Glucose 354 mg/dL (65-115); Magnesium 1.7 mg/dL (1.7-2.3); NT Pro B Type Natriuretic Pept 6800 pg/mL (0-125); Osmolality Calculated 293 mOsm/kg (285-295); Potassium 3.2 mmol/L (3.5-5.1); Sodium 135 mmol/L (136-145); Total Bilirubin 0.5 mg/dL (0.15-1.2); Total Protein 6.6 g/dL (6.6-8.7)
[2022-09-19] MEDS: FUROsemide 10 mg/mL SDV 4mL 40 MG IVP (16:38)
[2022-09-19] MEDS: potassium chloride ER 20 mEq Tablet 40 MEQ PO (16:38)
[2022-09-19 16:48] VITALS: BP 126/83; PULSE 92; RESP 20; O2SAT 97
== END 2022-09-19 17:07 | disposition home or self-care (01) ==
PROVIDERS: Emergency Provider Emergency Medicine
DX: R06.02 Shortness of breath (principal); E87.6 Hypokalemia; R73.9 Hyperglycemia, unspecified; J90 Pleural effusion, not elsewhere classified; F17.200 Nicotine dependence, unspecified, uncomplicated
CPT/HCPCS: 71045; 80053; 83735; 83880; 85025; 93005; 94640; 96374; 99285; J1940

== ENCOUNTER → 2022-12-09 09:57 | Outpatient (BNVA) | payer MEDICAID, SELFPAY | PROVIDERS: PCP Nurse Practitioner; Visit Provider Nurse Practitioner | DX: E11.65 Type 2 diabetes mellitus with hyperglycemia (principal); I25.10 Atherosclerotic heart disease of native coronary artery without angina pectoris | CPT/HCPCS: 80053; 80061; 81000; 83036; 84443 ==

== ENCOUNTER → 2023-03-03 09:59 | Outpatient (BNVA) | payer MEDICAID, SELFPAY | PROVIDERS: PCP Nurse Practitioner; Visit Provider Nurse Practitioner | DX: E11.65 Type 2 diabetes mellitus with hyperglycemia; I25.10 Atherosclerotic heart disease of native coronary artery without angina pectoris; J98.01 Acute bronchospasm; I73.9 Peripheral vascular disease, unspecified | CPT/HCPCS: 80053; 81000; 83036 ==

== ENCOUNTER 2023-04-14 15:11 | Emergency (ER) | payer MEDICAID, SELFPAY ==
[2023-04-14 15:14] VITALS: BP 131/86; PULSE 96; RESP 15; TEMP 36.3; O2SAT 98
--- NOTE | 2023-04-14 15:36 | CTR_ITS ---
PROCEDURE INFORMATION: Exam: CT Abdomen And Pelvis With Contrast Exam date and time: 04/14/2023 4:06 PM Age: 57 years old Clinical indication: Abdominal pain; Generalized; Prior surgery; Surgery date: 6+ months; Surgery type: Bowel resection, colonstomy reversal, ureteral stent; Additional info: Diffuse abd pain TECHNIQUE: Imaging protocol: Computed tomography of the abdomen and pelvis with contrast. Radiation optimization: All CT scans at this facility use at least one of these dose optimization techniques: automated exposure control; mA and/or kV adjustment per patient size (includes targeted exams where dose is matched to clinical indication); or iterative reconstruction. Contrast material: OMNI 350; Contrast volume: 100 ml; Contrast route: INTRAVENOUS (IV); COMPARISON: CT kidney stone [id number] 10/13/2020 9:56 PM RADIATION DOSE METRICS: Total DLP (mGy-cm): 448 FINDINGS: Lungs: Bilateral lower lobe ground-glass opacities. Pleural spaces: Moderate right and small left pleural effusions. Heart: Previous mitral valve replacement. Mild cardiomegaly. Liver: Normal. No mass. Gallbladder and bile ducts: Stones in the neck of the gallbladder with enhancing gallbladder mucosa and thick gallbladder wall. No biliary ductal dilatation. Pancreas: The pancreas is unremarkable. Spleen: The spleen is unremarkable. Adrenal glands: The adrenal glands are unremarkable. Kidneys and ureters: Single punctate nonobstructing stone right kidney. No renal obstruction on either side. Stomach and bowel: Rectosigmoid anastomosis. No bowel obstruction. Appendix: No evidence of appendicitis. Intraperitoneal space: Mild ascites. This is seen primarily in the upper abdomen. Vasculature: Moderate aortoiliac atherosclerotic disease. Lymph nodes: Unremarkable. No enlarged lymph nodes. Urinary bladder: No focal wall thickening of the urinary bladder. Reproductive: Unremarkable as visualized. Bones/joints: Mild lower lumbar degenerative changes. Soft tissues: Unremarkable. CT/CT abdomen pelvis w con* [id number] IMPRESSION: 1. Stones in the neck of the gallbladder with enhancing gallbladder mucosa and thick gallbladder wall. No biliary ductal dilatation. Findings are indicative of acute cholecystitis. 2. Moderate right and small left pleural effusions. 3. Bilateral lower lobe ground-glass opacities. 4. Mild ascites. This is seen primarily in the upper abdomen.
--- NOTE | 2023-04-14 15:38 | ED_ITS ---
HPI - Abdominal Pain 2 General: Chief Complaint: Abdominal Pain Stated Complaint: stomach pains Time Seen by Provider: 04/14/23 15:36 History of Present Illness: 57-year-old male patient comes in with a bdominal pain starting this morning. Patient reports nausea without vomiting. Patient appears nontoxic but in moderate to severe pain. Patient has a history of bowel resection after colostomy for perforation of the bowel. Patient has a history of diabetes, coronary artery disease, chronic tobacco use. Patient endorses continued tobacco use and marijuana use. Patient reports a continues to pass gas. Associated Symptoms: Reports nausea; Denies fever(s) Review of Systems 2 General: Reports: 10 or more systems reviewed and unremarkable except in HPI and below Const: Denies: fever(s) GI: Reports: abdominal pain and nausea PFSH ED 2 PFSH: Medical History (Updated 04/14/23 @ 17:17 by NICOLE Delgado) CHF (congestive heart failure) History of cigarette smoking 20 year smoker Hyperglycemia due to diabetes mellitus CAD (coronary artery disease) Urolithiasis Surgical History (Updated 12/09/22 @ 10:06 by KOJO Craig) History of colostomy reversal 2014 History of heart bypass surgery September, in [place], [place]. History of bowel resection History of heart artery stent 2011, 2016 S/P ureteral stent placement Status post laser lithotripsy of ureteral calculus Family History Mother , AT 56 Internal bleeding Father Lung disease Cancer LUNG Grandmother Diabetes Other Dementia Denies family history of Hypertension Stroke Social History Smoking and tobacco/nicotine status: former use of tobacco/nicotine Second hand smoke exposure: No Alcohol intake: former Substance/Drug Use: unknown Adopted: No Caregiver/support person: No Lives independently: Yes Household members: none Housing: Manufactured/Mobile home Marital status: Single Number of children: 1 service: No Current occupational status: unemployed Pets and animals: Yes Do you think of yourself as: Straight/Heterosexual Current gender identity: Male Physical Exam 2 Const: COMMON NORMALS: alert HENMT: COMMON NORMALS: normocephalic HEAD & SCALP: normocephalic Neck/C-Spine: COMMON NORMALS: full ROM Resp: COMMON NORMALS: normal respiratory effort and clear to auscultation bilaterally AUSCULTATION: clear to auscultation bilaterally Cardio: COMMON NORMALS: regular rate and regular rhythm RATE: regular rate RHYTHM: regular rhythm GI: COMMON NORMALS: Soft to palpation PALPATION: Yes Soft to palpation and Yes Tenderness to palpation present (GI) (Generalized) Back/Pelvis: COMMON NORMALS: thoracic and lumbar spine normal to inspection Extremity: COMMON NORMALS: normal to inspection Neuro: SENSORIUM/ORIENTATION: Yes alert Skin: COMMON NORMALS: turgor normal GENERAL SKIN EXAM: turgor normal Course 2 Vital Signs: Vital signs: Vital Signs Temperature 97.3 F L 04/14/23 15:14 Pulse Rate 98 04/14/23 15:57 Respiratory Rate 22 H 04/14/23 15:51 Blood Pressure 131/86 04/14/23 15:14 Pulse Oximetry 99 04/14/23 15:57 Oxygen Delivery Me thod Room Air 04/14/23 15:57 MDM - Abdominal Pain Medical Decision Making 57-year-old male patient comes in with abdominal pain starting this morning. On exam patient appears in pain. Patient has abdominal tenderness to palpation. Respirations are even lungs are clear to auscultation. Vital signs are normal. Differential diagnosis includes bowel obstruction, surgical adhesions, dehydration, malingering, depression. CBC and CMP showed no significant abnormalities. CT of the abdomen pelvis showed cholelithiasis with some gallbladder wall thickening. Labs showed no signs of biliary obstruction at this time. Patient will be treated for mild cholecystitis with cholelithiasis. Reviewed exam and treatment plan with patient and reported understanding. Patient was started on Cipro and Flagyl, and given hydrocodone and ondansetron for symptoms. Case management was requested for patient to follow-up with surgeon for further evaluation and treatment. Patient reported understanding of care plan and need for follow-up or return to the ER for worsening symptoms. Lab Data 04/14/23 15:54 04/14/23 15:54 Labs/Radiology: Radiology Impressions Abdomen/Pelvis CT 04/14/23 15:36 IMPRESSION: 1. Stones in the neck of the gallbladder with enhancing gallbladder mucosa and thick gallbladder wall. No biliary ductal dilatation. Findings are indicative of acute cholecystitis. 2. Moderate right and small left pleural effusions. 3. Bilateral lower lobe ground-glass opacities. 4. Mild ascites. This is seen primarily in the upper abdomen. Laboratory Results WBC 7.60 10^3/uL (3.29-11.43) 04/14/23 15:54 RBC 4.95 10^6/uL (3.85-5.65) 04/14/23 15:54 Hgb 15.00 g/dL (11.27-16.99) 04/14/23 15:54 Hct 46.9 % (37-53) 04/14/23 15:54 MCV 94.7 fl (82-101) 04/14/23 15:54 MCH 30.3 pg (27-33) 04/14/23 15:54 MCHC 32.0 g/dL (30-55) 04/14/23 15:54 RDW 14.7 % (12.1-15.1) 04/14/23 15:54 Plt Count 269 10^3/cmm (157-399) 04/14/23 15:54 MPV 9.0 fL (7.4-10.4) 04/14/23 15:54 Neut % (Auto) 85.2 % 04/14/23 15:54 Lymph % (Auto) 9.7 % 04/14/23 15:54 [place] % (Auto) 3.2 % 04/14/23 15:54 Eos % (Auto) 0.7 % 04/14/23 15:54 Baso % (Auto) 0.8 % 04/14/23 15:54 Neut # (Auto) 6.48 10^3/uL (1.8-7.7) 04/14/23 15:54 Lymph # (Auto) 0.7 10^3/uL (0.8-4.8) L 04/14/23 15:54 [place] # (Auto) 0.2 10^3/uL (0.2-0.9) 04/14/23 15:54 Eos # (Auto) 0.1 10^3/uL (0.0-0.8) 04/14/23 15:54 Baso # (Auto) 0.1 10^3/uL (0.0-0.1) 04/14/23 15:54 Nucleated RBC % (auto) 0 % 04/14/23 15:54 Nucleated RBCs # 0.0 /100WBC 04/14/23 15:54 Sodium 139 mmol/L (136-145) 04/14/23 15:54 Potassium 4.2 mmol/L (3.5-5.1) 04/14/23 15:54 Chloride 103 mmol/L (98-107) 04/14/23 15:54 Carbon Dioxide 22 mmol/L (22-29) 04/14/23 15:54 Anion Gap 18.2 (5-19) 04/14/23 15:54 BUN 24 mg/dL (6-20) H 04/14/23 15:54 Creatinine 0.9 mg/dL (0.7-1.2) 04/14/23 15:54 GFR Calculation 87.3 mL/min (90-130) L 04/14/23 15:54 Glucose 157 mg/dL (65-115) H 04/14/23 15:54 Calculated Osmolality 295 mOsm/kg (285-295) 04/14/23 15:54 Calcium 9.6 mg/dL (8.5-10.5) 04/14/23 15:54 Total Bilirubin 0.7 mg/dL (0.15-1.2) 04/14/23 15:54 AST 24 U/L (0-40) 04/14/23 15:54 ALT 23 U/L (0-41) 04/14/23 15:54 Alkaline Phosphatase 110 U/L (40-130) 04/14/23 15:54 Total Protein 7.9 g/dL (6.6-8.7) 04/14/23 15:54 Albumin 4.3 g/dL (3.5-5.2) 04/14/23 15:54 Globulin 3.6 g/dL (1.3-4.6) 04/14/23 15:54 Lipase 20 U/L (13-60) 04/14/23 15:54 Urine Color Yellow (Yellow) 04/14/23 15:54 Urine Appearance Clear (CLEAR) 04/14/23 15:54 Urine pH 5 (5-7) 04/14/23 15:54 Ur Specific [place] 1.020 (1.005-1.030) 04/14/23 15:54 Urine Protein 1+ (Negative) H 04/14/23 15:54 Urine Glucose (UA) 4+ (Normal) H 04/14/23 15:54 Urine Ketones 1+ (Negative) H 04/14/23 15:54 Urine Blood Neg (Negative) 04/14/23 15:54 Urine Nitrate Negative (Negative) 04/14/23 15:54 Urine Bilirubin Neg (Negative) 04/14/23 15:54 Urine Urobilinogen Norm mg/dL (Negative) 04/14/23 15:54 Ur Leukocyte Esterase Negative (Negative) 04/14/23 15:54 Urine RBC 0-4 /hpf (0-2) H 04/14/23 15:54 Urine WBC None /hpf (0-5) 04/14/23 15:54 Ur Squamous Epith Cells None /hpf (0-5) 04/14/23 15:54 Amorphous Sediment Not Reportable 04/14/23 15:54 Urine Bacteria None /hpf (NONE) 04/14/23 15:54 Urine Mucus None /hpf 04/14/23 15:54 All radiology interpretation(s) finalized by discharge Discharge Plan Discharge Patient Disposition: Home Clinical Impression: Cholelithiasis and acute cholecystitis without obstruction Condition: Stable Prescriptions: New Cipro 500 mg tablet 500 mg PO BID Qty: 10 0RF metronidazole 500 mg tablet 500 mg PO BID 7 Days Qty: 14 0RF hydrocodone-acetaminophen 5-325 mg tablet 1 tab PO Q6H PRN (Reason: pain) Qty: 10 0RF ondansetron 4 mg tablet,disintegrating 4 mg PO Q8H PRN (Reason: nausea and vomiting) Qty: 10 0RF No Action (DME) OneTouch Ultra Test Strip See Rx Instructions .Route Qty: 50 5RF Rx Instructions: use 1 day atorvastatin 40 mg tablet 40 mg PO DAILY Qty: 30 5RF carvedilol 3.125 mg tablet 3.125 mg PO BID Qty: 60 5RF clopidogrel 75 mg tablet 75 mg PO DAILY Qty: 30 5RF cilostazol 100 mg tablet 100 mg PO BID Qty: 60 5RF (DME) lancets [OneTouch Delica Plus Lancet] 33 gauge misc See Rx Instructions .Route Qty: 100 5RF Rx Instructions: one day (DME) blood-glucose meter [True Metrix Glucose Meter] Misc See Rx Instructions .Route Qty: 1 0RF Rx Instructions: As directed (DME) blood-glucose meter [OneTouch Ultra2 Meter] Misc See Rx Instructions .Route Qty: 1 0RF Rx Instructions: As directed metformin 500 mg tablet extended release 24 hr 2,000 mg PO DAILY Qty: 120 5RF Farxiga 10 mg tablet 10 mg PO QAM Qty: 30 2RF Discharge Orders: Discharge ED (Routine); Ordered 04/14/23 Ordered By: Arnold Linda Referrals: Edita Smith, [employer] [Primary Care Provider] - Discharge Diet: Usual diet Discharge Activity: Increase activity as tolerated Patient Instructions: Biliary Colic (ED), Opioid Safety Activity Restrictions/Additional Instructions: Home and rest. Drink plenty of water and fluids. Use hydrocodone and ondansetron as needed for discomfort and nausea and vomiting. Take Cipro and metronidazole for antibiotic. Case management will contact you regarding follow-up appointment with surgeon. Return to ER for worsening symptoms such as high fever, inability to hold fluids down, uncontrolled pain, or new concerns. Coding Level of Care Code ED Asbestos Shingle Roofer for Julianna Montaño
[2023-04-14 15:51] VITALS: RESP 22; O2SAT 95
[2023-04-14] MEDS: morphine 4 mg/mL SDV 1 mL IVP (15:51)
[2023-04-14] MEDS: ondansetron 2 mg/ML SDV 2 mL 4 MG IVP (15:51)
[2023-04-14] MEDS: sodium chloride 0.9% 1,000 ML 999 ML IV (15:56)
[2023-04-14 15:57] VITALS: PULSE 98; O2SAT 99
[2023-04-14 16:04] LABS: Basophils # 0.1 10^3/uL (0.0-0.1); Basophils % 0.8 %; Eosinophils # 0.1 10^3/uL (0.0-0.8); Eosinophils % 0.7 %; Hematocrit 46.9 % (37-53); Lymphocytes # 0.7 10^3/uL (0.8-4.8); Lymphocytes % 9.7 %; Mean Corpuscular Hemoglobin 30.3 pg (27-33); Mean Corpuscular Volume 94.7 fl (82-101); Monocytes # 0.2 10^3/uL (0.2-0.9); Monocytes % 3.2 %; Neutrophils # 6.48 10^3/uL (1.8-7.7); Neutrophils % 85.2 %; Nucleated Red Blood Cells % 0 %; Platelet Count 269 10^3/cmm (157-399); Red Blood Count 4.95 10^6/uL (3.85-5.65); Red Cell Distribution Width 14.7 % (12.1-15.1)
[2023-04-14] MEDS: iohexol 350 mg/mL 500 mL Btl (per mL) IV (16:10)
[2023-04-14 16:27] LABS: Alanine Aminotransferase 23 U/L (0-41); Albumin Level 4.3 g/dL (3.5-5.2); Alkaline Phosphatase 110 U/L (40-130); Anion Gap 18.2 (5-19); Aspartate Amino Transferase 24 U/L (0-40); Blood Urea Nitrogen 24 mg/dL (6-20); Calcium 9.6 mg/dL (8.5-10.5); Carbon Dioxide 22 mmol/L (22-29); Chloride 103 mmol/L (98-107); Globulin 3.6 g/dL (1.3-4.6); Glomerular Filtration Rate 87.3 mL/min (90-130); Glucose 157 mg/dL (65-115); Lipase 20 U/L (13-60); Osmolality Calculated 295 mOsm/kg (285-295); Potassium 4.2 mmol/L (3.5-5.1); Sodium 139 mmol/L (136-145); Total Bilirubin 0.7 mg/dL (0.15-1.2); Total Protein 7.9 g/dL (6.6-8.7)
[2023-04-14 16:30] LABS: Add Urine Microscopic? YES; Bilirubin Urine Neg (Negative); Blood Urine Neg (Negative); Glucose Urine UA 4+ (Normal); Ketones Urine 1+ (Negative); Leukocyte Esterase Urine Negative (Negative); Nitrate Urine Negative (Negative); Protein Urine 1+ (Negative); Urine Appearance Clear (CLEAR); Urine Color Yellow (Yellow); Urobilinogen Urine Norm (Negative); pH Urine 5 (5-7)
[2023-04-14 16:38] LABS: Add Urine Culture? No; RBC Urine 0-4 /hpf (0-2)
[2023-04-14 18:00] VITALS: PULSE 94; O2SAT 94
--- NOTE | 2023-04-14 19:00 | DCPLANNER ---
Message was sent to general surgery on 04/14/23 at 1900. Clinic to contact patient.
== END 2023-04-14 17:40 | disposition home or self-care (01) ==
PROVIDERS: Emergency Provider Nurse Practitioner Family; PCP Nurse Practitioner
DX: K80.00 Calculus of gallbladder with acute cholecystitis without obstruction (principal); Z79.02 Long term (current) use of antithrombotics/antiplatelets; Z79.84 Long term (current) use of oral hypoglycemic drugs; Z87.891 Personal history of nicotine dependence; I50.9 Heart failure, unspecified; E11.9 Type 2 diabetes mellitus without complications; I25.10 Atherosclerotic heart disease of native coronary artery without angina pectoris
CPT/HCPCS: 74177; 80053; 81001; 83690; 85025; 96361; 96374; 96375; 99285; J2270; J2405; J7030; Q9967

== ENCOUNTER → 2023-05-23 10:21 | Outpatient (BNVA) | payer MEDICAID, SELFPAY | PROVIDERS: PCP Nurse Practitioner; Visit Provider Nurse Practitioner | DX: E11.9 Type 2 diabetes mellitus without complications (principal) | CPT/HCPCS: 71046; 80053; 83036 ==

== ENCOUNTER → 2023-08-18 09:09 | Outpatient (BNVA) | payer MEDICAID, SELFPAY | PROVIDERS: PCP Nurse Practitioner; Visit Provider Nurse Practitioner | DX: E11.9 Type 2 diabetes mellitus without complications (principal) | CPT/HCPCS: 80053; 80061; 81000; 82607; 83036 ==

== ENCOUNTER → 2023-11-03 08:18 | Outpatient (BNVA) | payer MEDICAID, SELFPAY | PROVIDERS: PCP Nurse Practitioner; Visit Provider Nurse Practitioner | DX: E11.65 Type 2 diabetes mellitus with hyperglycemia (principal) | CPT/HCPCS: 80048; 81000; 83036 ==

== ENCOUNTER → 2024-01-30 08:40 | Outpatient (BNVA) | payer MEDICAID, SELFPAY | PROVIDERS: PCP Nurse Practitioner; Visit Provider Nurse Practitioner | DX: Z12.5 Encounter for screening for malignant neoplasm of prostate (principal); E11.9 Type 2 diabetes mellitus without complications | CPT/HCPCS: 80053; 81000; 83036; G0103 ==

== ENCOUNTER → 2024-04-23 09:13 | Outpatient (BNVA) | payer MEDICAID, SELFPAY | PROVIDERS: PCP Nurse Practitioner; Visit Provider Nurse Practitioner | DX: E11.9 Type 2 diabetes mellitus without complications (principal) | CPT/HCPCS: 80053; 80061; 83036 ==

== ENCOUNTER 2024-06-21 11:26 | Emergency (ER) | payer MEDICAID, SELFPAY ==
[2024-06-21 11:23] VITALS: BP 133/74; PULSE 82; RESP 16; TEMP 36.8; O2SAT 97; BMI 20.5
--- NOTE | 2024-06-21 11:39 | W.ED.BACK ---
HPI - Back Pain/Injury General: Chief Complaint: Back Pain/Injury Stated Complaint: back pain History of Present Illness: Patient presents to the ER with complaints of low back pain primarily on his right side radiates down his right leg. Patient denies any mechanism of injury or trauma. Patient said this started about 4 days ago and is getting worse. Patient has had pain like this before. Patient also has kidney stones. But says this pain is more similar to his back pain than his kidney stone pain. Patient denies any pain burning frequency hematuria nausea vomiting. Related Data Home Medications ?Medication ?Instructions ?Recorded ?Confirmed ezetimibe 10 mg tablet 10 mg PO DAILY 06/21/24 06/21/24 metformin 500 mg tablet,extended 2,000 mg PO DAILY 06/21/24 06/21/24 release 24 hr ramipril 1.25 mg capsule 1.25 mg PO DAILY 06/21/24 06/21/24 Previous Rx's ?Medication ?Instructions ?Recorded atorvastatin 80 mg tablet 80 mg PO DAILY #1 tab 05/24/23 carvedilol 3.125 mg tablet 3.125 mg PO BID #60 tabs 04/23/24 clopidogrel 75 mg tablet 75 mg PO DAILY #30 tabs 04/23/24 dapagliflozin propanediol 10 mg 10 mg PO QAM #30 tabs 04/23/24 tablet (Farxiga) hydroxyzine pamoate 25 mg capsule 25 mg PO .at bedtime anxiety #30 04/23/24 caps insulin glargine 100 unit/mL (3 30 unit (0.3 mL) SUBCUT QAM #15 mL 04/23/24 mL) subcutaneous pen (Lantus Solostar U-100 Insulin) umeclidinium 62.5 mcg-vilanterol 1 inh inhalation Q24H #60 ea 04/23/24 25 mcg/actuation powdr for inhalation (Anoro Ellipta) meloxicam 7.5 mg tablet 7.5 mg PO .Twice daily #14 tabs 06/21/24 prednisone 50 mg tablet 50 mg PO DAILY #5 tabs 06/21/24 Allergies Allergy/AdvReac Type Severity Reaction Status Date / Time aspirin Allergy Unknown Verified 04/23/24 08:40 Review of Systems General: Reports: 10 or more systems reviewed and unremarkable except in HPI and below PFSH ED PFSH: Medical History Diabetes mellitus with hyperglycemia, with long-term current use of insulin CHF (congestive heart failure) History of cigarette smoking 20 year smoker 1-3 cigarettes' day CAD (coronary artery disease) Urolithiasis Surgical History History of colostomy reversal 2014 History of heart bypass surgery September, in [place], [place]. History of bowel resection History of heart artery stent 2011, 2016 S/P ureteral stent placement Status post laser lithotripsy of ureteral calculus Family History Mother , AT 56 Internal bleeding Father Lung disease Cancer LUNG Grandmother Diabetes Other Dementia Denies family history of Hypertension Stroke Social History Smoking and tobacco/nicotine status: current every day tobacco/nicotine user Second hand smoke exposure: No Alcohol intake: current Alcohol intake frequency: few times a month Substance/Drug Use: current Substance/Drug use frequency: daily Adopted: No Caregiver/support person: No Lives independently: Yes Household members: none Housing: Manufactured/Mobile home Marital status: Single Number of children: 1 service: No Current occupational status: unemployed Pets and animals: Yes Do you think of yourself as: Straight/Heterosexual Current gender identity: Male Physical Exam Const: COMMON NORMALS: no acute distress, average body habitus, patient oriented x3, no limitations, healthy appearing, alert and well nourished HENMT: COMMON NORMALS: normocephalic, atraumatic, hearing grossly normal bilaterally, external ears normal, Normal external nose present, moist oral mucous membranes and oropharynx normal HEAD & SCALP: normocephalic and atraumatic NOSE: Normal external nose present EXTERNAL EAR: Yes external ears normal Neck/C-Spine: COMMON NORMALS: full ROM, no lymphadenopathy, supple, no meningeal signs, no JVD and Thyroid normal THYROID: Thyroid normal Chest: COMMONS NORMALS: normal inspection of the chest and normal palpation of entire chest wall Resp: COMMON NORMALS: normal respiratory effort, No retractions, No use of accessory muscles and clear to auscultation bilaterally AUSCULTATION: clear to auscultation bilaterally Cardio: COMMON NORMALS: no JVD, regular rate, regular rhythm, S1 normal heart sound present, S2 normal heart sound present, No gallops present (Cardio), No clicks present (Cardio), No murmurs present (Cardio) and No rub (Cardio) RATE: regular rate RHYTHM: regular rhythm HEART SOUNDS: S1 normal heart sound present and S2 normal heart sound present GI: COMMON NORMALS: Normal to inspection, nondistended, normoactive bowel sounds present, Soft to palpation, non-tender, No hepatosplenomegaly present and no masses PALPATION: Yes Soft to palpation and Yes No hepatosplenomegaly present Back/Pelvis: OTHER: Tender to palpate the right lower paraspinal lumbar musculature tight ropey no obvious tender to palpation step-off deformity over spinous processes Neuro: COMMON NORMALS: patient oriented x3 SENSORIUM/ORIENTATION: Yes alert MENINGEAL SIGNS: Yes no meningeal signs Course Vital Signs: Vital signs: Vital Signs Temperature 98.3 F 06/21/24 11:23 Pulse Rate 16 L 06/21/24 13:15 Respiratory Rate 18 06/21/24 13:15 Blood Pressure 102/69 06/21/24 13:15 Pulse Oximetry 93 06/21/24 13:15 Oxygen Delivery Me thod Room Air 06/21/24 13:15 MDM - Back Pain/Injury Medical Decision Making X-ray is read off is mild degenerative spondylosis by radiologist, patient was given Toradol Norflex and eventually 1 [place]. Patient be discharged home. Medical Records I reviewed the patient's medical records. Labs I reviewed the patient's lab results. Radiology Impressions Lumbar Spine X-Ray 06/21/24 12:16 IMPRESSION: No acute abnormality. Mild degenerative spondylosis. All radiology interpretation(s) finalized by discharge Discharge Plan Discharge Patient Disposition: Home Clinical Impression: Acute on chronic low back pain Condition: Stable Prescriptions: New meloxicam 7.5 mg tablet 7.5 mg PO .Twice daily Qty: 14 0RF prednisone 50 mg tablet 50 mg PO DAILY Qty: 5 0RF No Action atorvastatin 80 mg tablet 80 mg PO DAILY Qty: 1 0RF Rx Instructions: sent by Arielle Lisa cardiology [place] Farxiga 10 mg tablet 10 mg PO QAM Qty: 30 2RF carvedilol 3.125 mg tablet 3.125 mg PO BID Qty: 60 5RF clopidogrel 75 mg tablet 75 mg PO DAILY Qty: 30 5RF insulin glargine [Lantus Solostar U-100 Insulin] 100 unit/mL (3 mL) insulin pen 30 unit SUBCUT QAM Qty: 15 1RF Anoro Ellipta 62.5-25 mcg/actuation blister with device 1 inh inhalation Q24H Qty: 60 2RF hydroxyzine pamoate 25 mg capsule 25 mg PO .at bedtime Qty: 30 2RF metformin 500 mg tablet extended release 24 hr 2,000 mg PO DAILY ramipril 1.25 mg capsule 1.25 mg PO DAILY ezetimibe 10 mg tablet 10 mg PO DAILY Discharge Orders: Discharge ED (Routine); Ordered 06/21/24 Ordered By: Americo Aguila Referrals: Edita Smtih, NICOLE-C [Primary Care Provider] - 1 week Patient Instructions: Chronic Back Pain (DC), Lower Back Exercises (ED) Activity Restrictions/Additional Instructions: Thank you for choosing [facility] for your healthcare needs today. Please realize that you were seen in the emergency department and that we are providing you with an emergency medical screening exam and this may not be a complete and all exclusive of all testing and/or medical workup we may need to determine your element or severity of your illness. It is very important that you follow-up as instructed with your primary care provider or specialist for the additional evaluation and to discuss your medical treatment plan. You may return to the emergency department should you have concerns or if your condition changes or worsens in any way. Print Language: Bermudian Coding Level of Care Code ED Sales Order Specialist for Julianna Montaño
[2024-06-21 12:06] VITALS: BP 125/71; PULSE 83; RESP 16; O2SAT 95
--- NOTE | 2024-06-21 12:16 | XR_ITS ---
WS: [id number] XR lumbar spine 2-3V* [id number] REASON FOR EXAM: Pain no trauma FINDINGS: Mild rotatory levo scoliosis. Mild straightening of the normal lordosis. No compression fracture or focal lesion of the vertebrae. Mild vertebral body osteophytosis L3-L5. Minimal narrowing of the L5-S1 disc space. The disc spaces of the lumbar spine are otherwise intact and well preserved. No spondylolysis and no significant spondylolisthesis. XR/XR lumbar spine 2-3V* [id number] IMPRESSION: No acute abnormality. Mild degenerative spondylosis.
[2024-06-21] MEDS: ketorolac 60 mg/2 mL INJ IM (12:21)
[2024-06-21] MEDS: orphenadrine 30 mg/mL Inj 2 mL 60 MG IM (12:25)
[2024-06-21] MEDS: HYDROcodone-acetaminophen 5-325 mg Tablet 1 TAB PO (13:13)
[2024-06-21 13:15] VITALS: BP 102/69; PULSE 16; RESP 18; O2SAT 93
[2024-06-21 15:17] VITALS: RESP 16
[2024-06-21] MEDS: morphine 4 mg/mL SDV 1 mL IVP (15:17)
[2024-06-21 15:42] VITALS: BP 114/83; PULSE 76; RESP 16; O2SAT 96
== END 2024-06-21 15:40 | disposition home or self-care (01) ==
PROVIDERS: Emergency Provider Emergency Medicine; PCP Nurse Practitioner
DX: M54.50 Low back pain, unspecified (principal); Z79.02 Long term (current) use of antithrombotics/antiplatelets; Z79.4 Long term (current) use of insulin; Z79.84 Long term (current) use of oral hypoglycemic drugs; Z72.0 Tobacco use; I25.10 Atherosclerotic heart disease of native coronary artery without angina pectoris; E11.9 Type 2 diabetes mellitus without complications; I50.9 Heart failure, unspecified
CPT/HCPCS: 72100; 96372; 96374; 99284; J1885; J2270; J2360; J9999

== ENCOUNTER → 2024-07-16 09:20 | Outpatient (BNVA) | payer MEDICAID, SELFPAY | PROVIDERS: PCP Nurse Practitioner; Visit Provider Nurse Practitioner | DX: E11.65 Type 2 diabetes mellitus with hyperglycemia (principal); Z79.4 Long term (current) use of insulin | CPT/HCPCS: 80053; 81003; 83036; 85025; 87086 ==

== ENCOUNTER 2024-09-02 09:47 | Emergency (ER) | payer MEDICAID, SELFPAY ==
[2024-09-02 09:55] VITALS: BP 124/77; PULSE 86; RESP 18; TEMP 36.8; O2SAT 96
--- NOTE | 2024-09-02 10:10 | W.ED.WOUNDLC ---
HPI - Wound/Laceration General: Chief Complaint: Wound/Laceration Stated Complaint: bleeding from incision on chest Time Seen by Provider: 09/02/24 09:53 Source: patient Mode of arrival: ambulatory Limitations: no limitations History of Present Illness: 58-year-old male states he had a defibrillator pacemaker placed 2 weeks ago he states has had some dark red blood coming out of the incision along with a hematoma. He denies any fevers denies any pains denies any redness. Associated symptoms: Denies chills, fever(s), nausea or vomiting Related Data Home Medications ?Medication ?Instructions ?Recorded ?Confirmed ezetimibe 10 mg tablet 10 mg PO DAILY 06/21/24 08/30/24 ramipril 1.25 mg capsule 1.25 mg PO DAILY 06/21/24 08/30/24 metformin 500 mg tablet,extended 1,500 mg PO QDAY 08/30/24 08/30/24 release 24 hr Previous Rx's ?Medication ?Instructions ?Recorded atorvastatin 80 mg tablet 80 mg PO DAILY #1 tab 05/24/23 blood sugar diagnostic (Contour #100 ea 07/01/24 Plus Test Strip) blood-glucose meter (Contour Plus #1 ea 07/01/24 Blue Meter) lancets 31 gauge (Comfort Touch #100 ea 07/01/24 Ultra Thin Lancets) carvedilol 3.125 mg tablet 3.125 mg PO BID #60 tabs 07/16/24 clopidogrel 75 mg tablet 75 mg PO DAILY #30 tabs 07/16/24 dapagliflozin propanediol 10 mg 10 mg PO QAM #30 tabs 07/16/24 tablet (Farxiga) insulin glargine 100 unit/mL (3 30 unit (0.3 mL) SUBCUT QAM #15 mL 07/16/24 mL) subcutaneous pen (Lantus Solostar U-100 Insulin) umeclidinium 62.5 mcg-vilanterol 1 inh inhalation Q24H #60 ea 07/16/24 25 mcg/actuation powdr for inhalation (Anoro Ellipta) blood-glucose sensor (Dexcom G7 #12 ea 07/26/24 Sensor device) blood-glucose,director of coding,cont #1 ea 07/26/24 (Dexcom G7 Supervisor Hydrochloric Area) pen needle, diabetic 33 gauge x #100 ea 08/30/24 Allergies Allergy/AdvReac Type Severity Reaction Status Date / Time aspirin Allergy Unknown Verified 08/30/24 11:26 Review of Systems Const: Denies: fever(s), chills, body aches or change in appetite ENMT: Denies: throat pain or dental pain Card: Denies: chest pain Resp: Denies: dyspnea GI: Denies: abdominal pain, nausea, vomiting or diarrhea Musc: Denies: neck pain or back pain Skin/Breast: Denies: rash Neuro: Denies: headache(s) PFSH ED PFSH: Medical History Diabetes mellitus with hyperglycemia, with long-term current use of insulin CHF (congestive heart failure) History of cigarette smoking 20 year smoker 1-3 cigarettes' day CAD (coronary artery disease) Urolithiasis Surgical History History of colostomy reversal 2014 History of heart bypass surgery September, in [place], [place]. History of bowel resection History of heart artery stent 2011, 2016 S/P ureteral stent placement Status post laser lithotripsy of ureteral calculus Family History Mother , AT 56 Internal bleeding Father Lung disease Cancer LUNG Grandmother Diabetes Other Dementia Denies family history of Hypertension Stroke Social History Smoking and tobacco/nicotine status: current every day tobacco/nicotine user Second hand smoke exposure: No Alcohol intake: current Alcohol intake frequency: few times a month Substance/Drug Use: current Substance/Drug use frequency: daily Adopted: No Caregiver/support person: No Lives independently: Yes Household members: none Housing: Manufactured/Mobile home Marital status: Single Number of children: 1 service: No Current occupational status: unemployed Pets and animals: Yes Do you think of yourself as: Straight/Heterosexual Current gender identity: Male Physical Exam Const: COMMON NORMALS: no acute distress, patient oriented x3 and healthy appearing HENMT: COMMON NORMALS: normocephalic and atraumatic HEAD & SCALP: normocephalic and atraumatic Eye: COMMON NORMALS: conjunctivae normal CONJUNCTIVA: Yes conjunctivae normal Neck/C-Spine: COMMON NORMALS: full ROM and supple Chest: COMMONS NORMALS: normal palpation of entire chest wall OTHER: Hematoma noted to left chest wall with some old dark red blood oozing from incision site no erythema noted purulent drainage Resp: COMMON NORMALS: normal respiratory effort Cardio: COMMON NORMALS: regular rate RATE: regular rate Extremity: COMMON NORMALS: normal to inspection and full ROM Neuro: COMMON NORMALS: patient oriented x3, moves all extremities and no focal motor deficits Psych: COMMON NORMALS: mental status grossly normal, Normal thought process present and cooperative THOUGHT PROCESS: Normal thought process present Skin: COMMON NORMALS: no rashes or lesions noted and no wounds GENERAL SKIN EXAM: no rashes or lesions noted Course Vital Signs: Vital signs: Vital Signs Temperature 98.2 F 09/02/24 09:55 Pulse Rate 86 09/02/24 09:55 Respiratory Rate 18 09/02/24 09:55 Blood Pressure 124/77 09/02/24 09:55 Pulse Oximetry 96 09/02/24 09:55 Oxygen Delivery Me thod Room Air 09/02/24 09:55 MDM - Wound/Laceration Medical Decision Making Patient presents with hematoma to the chest wall that expressed blood he is bleeding has since stopped did place a pressure dressing he is continue ice follow-up with his PCP return if worsening. Medical Records I reviewed the patient's medical records. No radiology studies performed this visit Discharge Plan Discharge Patient Disposition: Home Clinical Impression: Hematoma Condition: Stable Prescriptions: No Action atorvastatin 80 mg tablet 80 mg PO DAILY Qty: 1 0RF Rx Instructions: sent by Arielle Gonzalez cardiology [place] metformin 500 mg tablet extended release 24 hr 1,500 mg PO QDAY (DME) pen needle, diabetic 33 gauge x 5/32 needle See Rx Instructions .ROUTE .MEDSUPPLY Qty: 100 5RF Rx Instructions: 1 time day carvedilol 3.125 mg tablet 3.125 mg PO BID Qty: 60 5RF clopidogrel 75 mg tablet 75 mg PO DAILY Qty: 30 5RF Farxiga 10 mg tablet 10 mg PO QAM Qty: 30 2RF insulin glargine [Lantus Solostar U-100 Insulin] 100 unit/mL (3 mL) insulin pen 30 unit SUBCUT QAM Qty: 15 1RF Anoro Ellipta 62.5-25 mcg/actuation blister with device 1 inh inhalation Q24H Qty: 60 2RF (DME) blood-glucose meter [Contour Plus Blue Meter] Misc See Rx Instructions .Route Qty: 1 0RF Rx Instructions: As directed (DME) Contour Plus Test Strip Strip See Rx Instructions .Route Qty: 100 5RF Rx Instructions: use 3 times day as needed (DME) Comfort Touch Ult Thin Lancets 31 gauge misc See Rx Instructions .Route Qty: 100 5RF Rx Instructions: three times day as needed (DME) Dexcom G7 Sensor Device See Rx Instructions .ROUTE .MEDSUPPLY Qty: 12 3RF Rx Instructions: change every 10 days (DME) Dexcom G7 Supervisor Hydrochloric Area Misc See Rx Instructions .Route Qty: 1 0RF Rx Instructions: As directed ramipril 1.25 mg capsule 1.25 mg PO DAILY ezetimibe 10 mg tablet 10 mg PO DAILY Discharge Orders: Discharge ED (Routine); Ordered 09/02/24 Ordered By: Katiana Lunsford Referrals: Edita Smith, LIGHTER-C [Primary Care Provider, Family Practice] Discharge Diet: Advance as tolerated Discharge Activity: Resume usual activity Patient Instructions: Hematoma (ED) Print Language: Persian Coding Level of Care Code ED Ingredient Scaler Helper for Julianna Montaño
[2024-09-02] MEDS: silver nitrate applicator 1 EACH TOPICAL (10:12)
[2024-09-02 10:31] VITALS: BP 130/80; PULSE 77; O2SAT 98
== END 2024-09-02 10:31 | disposition home or self-care (01) ==
PROVIDERS: Emergency Provider Emergency Medicine; PCP Nurse Practitioner
DX: S20.219A Contusion of unspecified front wall of thorax, initial encounter (principal); X58.XXXA Exposure to other specified factors, initial encounter; Z79.02 Long term (current) use of antithrombotics/antiplatelets; Z79.84 Long term (current) use of oral hypoglycemic drugs; Z79.4 Long term (current) use of insulin; Z72.0 Tobacco use; I25.10 Atherosclerotic heart disease of native coronary artery without angina pectoris; E11.9 Type 2 diabetes mellitus without complications; I50.9 Heart failure, unspecified
CPT/HCPCS: 99283

== ENCOUNTER → 2024-10-09 10:45 | Outpatient (BNVA) | payer MEDICAID, SELFPAY | PROVIDERS: PCP Nurse Practitioner; Visit Provider Nurse Practitioner | DX: I25.10 Atherosclerotic heart disease of native coronary artery without angina pectoris (principal); E11.65 Type 2 diabetes mellitus with hyperglycemia; Z79.4 Long term (current) use of insulin; E55.9 Vitamin D deficiency, unspecified | CPT/HCPCS: 80053; 80061; 81000; 82043; 82306; 82607; 83036; 84443; 85025 ==

== ENCOUNTER → 2025-01-01 11:51 | Outpatient (BNVA) | payer MEDICAID, SELFPAY | PROVIDERS: PCP Nurse Practitioner; Visit Provider Nurse Practitioner | DX: E11.65 Type 2 diabetes mellitus with hyperglycemia (principal); Z79.4 Long term (current) use of insulin | CPT/HCPCS: 80053; 83036 ==